=== PATIENT | male | born 1950 | race Caucasian/White ===

== ENCOUNTER → 2021-05-24 | Outpatient (CLI) | payer MEDICARE ==
--- NOTE | 2021-05-24 09:16 | XR ---
EXAMINATION TYPE: XR chest 2V DATE OF EXAM: 05/24/2021 COMPARISON: NONE TECHNIQUE: PA and lateral views submitted. HISTORY: Cough FINDINGS: The lungs are clear and there is no pneumothorax, pleural effusion, or focal pneumonia. Hypertrophi c changes of the spine. Heart size normal. No overt failure or pneumothorax. No pleural effusion. IMPRESSION: 1. No acute process.
== END | disposition home or self-care (01) ==
LOC: RADXRMAIN 08:56
PROVIDERS: ATTEND Internal Medicine
DX: J20.9 Acute bronchitis, unspecified (principal)
CPT/HCPCS: 71046

== ENCOUNTER 2024-03-25 07:36 | Inpatient (IN) | payer MEDICARE ==
[2024-03-25 07:52] LABS: Glucose,Whole Blood 105 mg/dL (70-110)
--- NOTE | 2024-03-25 08:01 | ED ---
Altered Mental Status HPI - General Chief Complaint: Altered Mental Status Stated Complaint: AMS Time Seen by Provider: 03/25/24 07:42 Source: EMS, RN notes reviewed, old records reviewed, Caregiver Mode of arrival: EMS Limitations: altered mental status - History of Present Illness Initial Comments: This is a 74-year-old male with decreased responsiveness found wandering around his house not acting appropriately confused with recent hospital admission for pneumonia coronavirus on antibiotics. Patient was acting weak last night but more normal woke up this morning with increasing weakness and significantly increased confusion brought to ER by EMS patient unable to give history MD Complaint: altered mental status, confusion, decreased responsiveness, weakness -: days(s) Severity: moderate Consistency of Symptoms: getting worse Associated Symptoms: weakness Treatments Prior to Arrival: oxygen - Related Data Home Medications Medication Instructions Recorded Confirmed Alpha Lipoic Acid 600 mg PO HS 03/25/24 03/25/24 Apixaban [Eliquis] 5 mg PO BID 03/25/24 03/25/24 Atorvastatin [Lipitor] 20 mg PO HS 03/25/24 03/25/24 Cephalexin [Keflex] 250 mg PO TID 03/25/24 03/25/24 Cholecalciferol [Vitamin D3 (25 100 mcg PO DAILY 03/25/24 03/25/24 Mcg = 1000 Iu)] Cholestyramine/Aspartame 4 gm PO BID PRN 03/25/24 03/25/24 [Cholestyramine Light Powder] Colchicine [Colcrys] 0.6 mg PO DAILY PRN 03/25/24 03/25/24 Diphenoxylate HCl/Atropine 1 tab PO Q8H PRN 03/25/24 03/25/24 [Lomotil 2.5-0.025 mg Tablet] Empagliflozin [Jardiance] 25 mg PO DAILY 03/25/24 03/25/24 Famotidine [Pepcid] 40 mg PO HS 03/25/24 03/25/24 Furosemide [Lasix] 40 mg PO DAILY 03/25/24 03/25/24 Insulin Glargine,Hum.rec.anlog 15 units SQ DAILY 03/25/24 03/25/24 [Lantus Solostar Pen] Levothyroxine Sodium [Synthroid] 112 mcg PO DAILY 03/25/24 03/25/24 Lipase/Protease/Amylase [Zenpep Dr 1 cap PO TID-W/MEALS 03/25/24 03/25/24 25,000 Unit Capsule] Loperamide [Imodium] 2 mg PO BID PRN 03/25/24 03/25/24 Loratadine [Claritin] 10 mg PO DAILY 03/25/24 03/25/24 Metoprolol Tartrate [Lopressor] 50 mg PO BID 03/25/24 03/25/24 Ondansetron Odt [Zofran Odt] 4 mg PO Q8HR PRN 03/25/24 03/25/24 Potassium Gluconate 550mg 550 mg PO DAILY 03/25/24 03/25/24 Sertraline [Zoloft] 50 mg PO DAILY 03/25/24 03/25/24 Vancomycin Oral Solution 125 mg PO Q12H 03/25/24 03/25/24 [Vancomycin HCl Oral Soln] allopurinoL [Zyloprim] 100 mg PO DAILY 03/25/24 03/25/24 lisinopriL [Zestril] 2.5 mg PO DAILY 03/25/24 03/25/24 oxyCODONE-APAP 5-325MG [Percocet 1 tab PO Q8H PRN 03/25/24 03/25/24 5-325 mg] traZODone HCL [Desyrel] 50 mg PO HS 03/25/24 03/25/24 Allergies Allergy/AdvReac Type Severity Reaction Status Date / Time No Known Allergies Allergy Verified 03/25/24 09:32 Review of Systems ROS Statement: Those systems with pertinent positive or pertinent negative responses have been documented in the HPI. ROS Other: All systems not noted in ROS Statement are negative. Past Medical History - Past Family History Mother History Unknown: Yes General Exam Limitations: altered mental status, physical limitation General appearance: alert, lethargic, in distress Head exam: Present: atraumatic, normocephalic, normal inspection Eye exam: Present: normal appearance, PERRL, EOMI. Absent: scleral icterus, conjunctival injection, periorbital swelling ENT exam: Present: normal exam, mucous membranes moist Neck exam: Present: normal inspection. Absent: tenderness, meningismus, lymphadenopathy Respiratory exam: Present: normal lung sounds bilaterally. Absent: respiratory distress, wheezes, rales, rhonchi, stridor Cardiovascular Exam: Present: regular rate, normal rhythm, normal heart sounds. Absent: systolic murmur, diastolic murmur, rubs, gallop, clicks GI/Abdominal exam: Present: soft, normal bowel sounds. Absent: distended, tenderness, guarding, rebound, rigid Extremities exam: Present: normal inspection, full ROM, normal capillary refill. Absent: tenderness, pedal edema, joint swelling, calf tenderness Back exam: Present: normal inspection Neurological exam: Present: alert, oriented X3, CN II-XII intact Psychiatric exam: Present: normal affect, normal mood Skin exam: Present: warm, dry, intact, normal color. Absent: rash Course Vital Signs 03/25/24 03/25/24 03/25/24 07:41 10:54 13:47 Temperature 97.5 F L Pulse Rate 70 74 68 Respiratory 18 18 17 Rate Blood Pressure 146/81 127/69 138/63 O2 Sat by Pulse 97 Oximetry 03/25/24 03/25/24 03/25/24 14:38 17:45 20:00 Temperature Pulse Rate 63 74 79 Respiratory 18 13 18 Rate Blood Pressure 138/54 155/63 153/62 O2 Sat by Pulse 94 L 97 97 Oximetry 03/25/24 03/25/24 03/26/24 21:00 23:00 01:05 Temperature Pulse Rate 86 83 90 Respiratory 18 18 18 Rate Blood Pressure 136/60 133/62 142/63 O2 Sat by Pulse 97 97 95 Oximetry 03/26/24 03/26/24 03/26/24 05:12 07:22 10:36 Temperature 99.1 F 100.2 F H Pulse Rate 83 85 72 Respiratory 18 18 18 Rate Blood Pressure 141/71 141/68 150/73 O2 Sat by Pulse 97 95 94 L Oximetry 03/26/24 03/26/24 03/26/24 12:10 13:40 16:54 Temperature 98 F 97.5 F L Pulse Rate 64 70 Respiratory 18 16 Rate Blood Pressure 122/63 128/69 O2 Sat by Pulse 95 99 Oximetry 03/26/24 18:00 Temperature Pulse Rate 71 Respiratory 16 Rate Blood Pressure 135/63 O2 Sat by Pulse 99 Oximetry - Reevaluation(s) Reevaluation #1: 03/25/24 08:00 Medical records reviewed Reevaluation #2: 03/25/24 10:29 No improvement in symptoms here in the ER Reevaluation #3: 03/25/24 10:30 Family informed of results questions answered Reevaluation #4: Was pt. sent in by a medical professional or institution (ELEAZAR Garcia, MACHINE EGG WASHER, urgent care, hospital, or retirement...) When possible be specific @ -no Did you speak to anyone other than the patient for history (EMS, parent, family, police, friend...)? What history was obtained from this source @ -no Did you review nursing and triage notes (agree or disagree)? Why? @ -agree Are old charts reviewed (outside hosp., previous admission, EMS record, old EKG, old radiological studies, urgent care reports/EKG's, retirement records)? Report findings @ -yes Differential Diagnosis (chest pain, altered mental status, abdominal pain women, abdominal pain men, vaginal bleeding, weakness, fever, dyspnea, syncope, headache, dizziness, GI bleed, back pain, seizure, CVA, palpatations, mental health, musculoskeletal)? @ -prior EKG interpreted by me (3pts min.). @ -yes X-rays interpreted by me (1pt min.). @ -yes negative for acute disease CT interpreted by me (1pt min.). @ -Yes negative for acute disease U/S interpreted by me (1pt. min.). @ -no What testing was considered but not performed or refused? (CT, X-rays, U/S, labs)? Why? @ -none What meds were considered but not given or refused? Why? @ -none Did you discuss the management of the patient with other professionals (professionals i.e. ELEAZAR Garcia, MACHINE EGG WASHER, lab, RT, psych nurse, social and human services assistant, drafter (cad) electrical, teacher, highway patrol officer, disease case manager rn)? Give summary @ -no Was smoking cessation discussed for >3mins.? @ -no Was critical care preformed (if so, how long)? @ -yes31 Were there social determinants of health that impacted care today? How? (Homelessness, low income, unemployed, alcoholism, drug addiction, transportation, low edu. Level, literacy, decrease access to med. care, care home, rehab)? @ -none Was there de-escalation of care discussed even if they declined (Discuss DNR or withdrawal of care, Hospice)? DNR status @ -no What co-morbidities impacted this encounter? (DM, HTN, Smoking, COPD, CAD, Cancer, CVA, ARF, Chemo, Hep., AIDS, mental health diagnosis, sleep apnea, morb id obesity)? @ -none Was patient admitted / discharged? Hospital course, mention meds given and rou te, prescriptions, significant lab abnormalities, going to OR and other pertinent info. @ - 74 male for altered mental status severe elevated troponin here in the ER unresponsive to questioning here in the emergency department old CVA on CT patient will be admitted for further evaluation management Admitted Undiagnosed new problem with uncertain prognosis? @ -no Drug Therapy requiring intensive monitoring for toxicity (Heparin, Nitro, Insulin, Cardizem)? @ -no Were any procedures done? @ -no Diagnosis/symptom? @ -Altered mental status CVA Acute, or Chronic, or Acute on Chronic? @ -Acute Uncomplicated (without systemic symptoms) or Complicated (systemic symptoms)? @ -Complicated Side effects of treatment? @ -no Exacerbation, Progression, or Severe Exacerbation? @ -exacerbation Poses a threat to life or bodily function? How? (Chest pain, USA, OR, pneumonia, PE, COPD, DKA, ARF, appy, cholecystitis, CVA, Diverticulitis, Homicidal, Suicidal, threat to staff... and all critical care pts) @ -yes extremes of age Reevaluation #5: Differential Altered Mental Status: Hypoglycemia, DKA, hypercapnia, ETOH, overdose, CO poisoning, trauma, myxedema coma, HTN encephalopathy, infection, encephalitis, psychosis, intercranial hemorrhage, hepatic encephalopathy, meningitis, CVA, this is not meant to be an all-inclusive list - Consultations Consultation #1: Spoke with To her who agrees to admit this patient Medical Decision Making - Medical Decision Making 74 male for altered mental status severe elevated troponin here in the ER unresponsive to questioning here in the emergency department old CVA on CT patient will be admitted for further evaluation management - Lab Data Result diagrams: 03/27/24 04:11 03/27/24 04:11 Lab Results 03/25/24 03/25/24 03/25/24 Range/Units 07:51 08:04 08:04 WBC 15.4 H (3.8-10.6) k/uL RBC 4.30 (4.30-5.90) m/uL Hgb 11.5 L (13.0-17.5) gm/dL Hct 35.5 L (39.0-53.0) % MCV 82.7 (80.0-100.0) fL MCH 26.7 (25.0-35.0) pg MCHC 32.2 (31.0-37.0) g/dL RDW 17.9 H (11.5-15.5) % Plt Count 181 (150-450) k/uL MPV 7.9 Neutrophils % 77 % Lymphocytes % 11 % Monocytes % 9 % Eosinophils % 0 % Basophils % 0 % Neutrophils # 11.9 H (1.3-7.7) k/uL Lymphocytes # 1.7 (1.0-4.8) k/uL Monocytes # 1.3 H (0-1.0) k/uL Eosinophils # 0.0 (0-0.7) k/uL Basophils # 0.0 (0-0.2) k/uL Anisocytosis Slight PT 17.6 H (10.0-12.5) sec INR 1.7 H (<1.2) APTT 26.4 (22.0-30.0) sec Sodium (137-145) mmol/L Potassium (3.5-5.1) mmol/L Chloride (98-107) mmol/L Carbon Dioxide (22-30) mmol/L Anion Gap mmol/L BUN (9-20) mg/dL Creatinine (0.66-1.25) mg/dL Est GFR (CKD-EPI)AfAm (>60 ml/min/1.73 sqM) Est GFR (CKD-EPI)NonAf (>60 ml/min/1.73 sqM) Glucose (74-99) mg/dL POC Glucose (mg/dL) 105 (70-110) mg/dL POC Glu Side Door Man ID Gresell Tameka Calcium (8.4-10.2) mg/dL Phosphorus (2.5-4.5) mg/dL Magnesium (1.6-2.3) mg/dL Total Bilirubin (0.2-1.3) mg/dL AST (17-59) U/L ALT (4-49) U/L Alkaline Phosphatase (38-126) U/L Ammonia (<30) umol/L Creatine Kinase (55-170) U/L Troponin I (0.000-0.034) ng/mL Total Protein (6.3-8.2) g/dL Albumin (3.5-5.0) g/dL Lipase (23-300) U/L Serum Alcohol mg/dL 03/25/24 03/25/24 03/25/24 Range/Units 08:04 08:04 08:04 WBC (3.8-10.6) k/uL RBC (4.30-5.90) m/uL Hgb (13.0-17.5) gm/dL Hct (39.0-53.0) % MCV (80.0-100.0) fL MCH (25.0-35.0) pg MCHC (31.0-37.0) g/dL RDW (11.5-15.5) % Plt Count (150-450) k/uL MPV Neutrophils % % Lymphocytes % % Monocytes % % Eosinophils % % Basophils % % Neutrophils # (1.3-7.7) k/uL Lymphocytes # (1.0-4.8) k/uL Monocytes # (0-1.0) k/uL Eosinophils # (0-0.7) k/uL Basophils # (0-0.2) k/uL Anisocytosis PT (10.0-12.5) sec INR (<1.2) APTT (22.0-30.0) sec Sodium 133 L (137-145) mmol/L Potassium 3.9 (3.5-5.1) mmol/L Chloride 103 (98-107) mmol/L Carbon Dioxide 21 L (22-30) mmol/L Anion Gap 9 mmol/L BUN 20 (9-20) mg/dL Creatinine 0.74 (0.66-1.25) mg/dL Est GFR (CKD-EPI)AfAm >90 (>60 ml/min/1.73 sqM) Est GFR (CKD-EPI)NonAf >90 (>60 ml/min/1.73 sqM) Glucose 117 H (74-99) mg/dL POC Glucose (mg/dL) (70-110) mg/dL POC Glu Side Door Man ID Calcium 7.9 L (8.4-10.2) mg/dL Phosphorus 3.9 (2.5-4.5) mg/dL Magnesium 2.2 (1.6-2.3) mg/dL Total Bilirubin 1.5 H (0.2-1.3) mg/dL AST 78 H (17-59) U/L ALT 25 (4-49) U/L Alkaline Phosphatase 293 H (38-126) U/L Ammonia 13 (<30) umol/L Creatine Kinase (55-170) U/L Troponin I 3.690 H* (0.000-0.034) ng/mL Total Protein 6.4 (6.3-8.2) g/dL Albumin 2.4 L (3.5-5.0) g/dL Lipase 11 L (23-300) U/L Serum Alcohol <10 mg/dL 03/25/24 Range/Units 08:04 WBC (3.8-10.6) k/uL RBC (4.30-5.90) m/uL Hgb (13.0-17.5) gm/dL Hct (39.0-53.0) % MCV (80.0-100.0) fL MCH (25.0-35.0) pg MCHC (31.0-37.0) g/dL RDW (11.5-15.5) % Plt Count (150-450) k/uL MPV Neutrophils % % Lymphocytes % % Monocytes % % Eosinophils % % Basophils % % Neutrophils # (1.3-7.7) k/uL Lymphocytes # (1.0-4.8) k/uL Monocytes # (0-1.0) k/uL Eosinophils # (0-0.7) k/uL Basophils # (0-0.2) k/uL Anisocytosis PT (10.0-12.5) sec INR (<1.2) APTT (22.0-30.0) sec Sodium (137-145) mmol/L Potassium (3.5-5.1) mmol/L Chloride (98-107) mmol/L Carbon Dioxide (22-30) mmol/L Anion Gap mmol/L BUN (9-20) mg/dL Creatinine (0.66-1.25) mg/dL Est GFR (CKD-EPI)AfAm (>60 ml/min/1.73 sqM) Est GFR (CKD-EPI)NonAf (>60 ml/min/1.73 sqM) Glucose (74-99) mg/dL POC Glucose (mg/dL) (70-110) mg/dL POC Glu Side Door Man ID Calcium (8.4-10.2) mg/dL Phosphorus (2.5-4.5) mg/dL Magnesium (1.6-2.3) mg/dL Total Bilirubin (0.2-1.3) mg/dL AST (17-59) U/L ALT (4-49) U/L Alkaline Phosphatase (38-126) U/L Ammonia (<30) umol/L Creatine Kinase 66 (55-170) U/L Troponin I (0.000-0.034) ng/mL Total Protein (6.3-8.2) g/dL Albumin (3.5-5.0) g/dL Lipase (23-300) U/L Serum Alcohol mg/dL - EKG Data -: EKG Interpreted by Me (EKG is sinus 69 IA 128 QRS 89 QTc 413) - Radiology Data Radiology results: report reviewed (CT brain negative for acute disease chest x- ray is negative for acute disease), image reviewed Critical Care Time Critical Care Time: Yes Total Critical Care Time: 31 Disposition Clinical Impression: Altered mental status, NSTEMI (non-ST elevated myocardial infarction) Disposition: ADMITTED IP TO THIS HOSP Condition: Serious Is patient prescribed a controlled substance at d/c from ED?: No Time of Disposition: 10:00
[2024-03-25 08:22] LABS: Anisocytosis Slight; Basophils % (A) 0 %; Eosinophils % (A) 0 %; HCT 35.5 % (39.0-53.0); HGB 11.5 gm/dL (13.0-17.5); Lymphocytes # (A) 1.7 k/uL (1.0-4.8); Lymphocytes % (A) 11 %; MCH 26.7 pg (25.0-35.0); MCHC 32.2 g/dL (31.0-37.0); MCV 82.7 fL (80.0-100.0); Mean Platelet Volume 7.9; Monocytes # (A) 1.3 k/uL (0-1.0); Monocytes % (A) 9 %; Neutrophils # (A) 11.9 k/uL (1.3-7.7); Neutrophils % (A) 77 %; Platelet Count 181 k/uL (150-450); RDW 17.9 % (11.5-15.5); WBC 15.4 k/uL (3.8-10.6)
[2024-03-25] MEDS: SODIUM CHLORIDE 0.9% 1,000 ML IV ONE (08:27)
[2024-03-25 08:30] LABS: ALT 25 U/L (4-49); AST 78 U/L (17-59); African American GFR (CKD) >90 (>60 ml/min/1.73 sqM); Albumin 2.4 g/dL (3.5-5.0); Alcohol <10 mg/dL; Alkaline Phosphatase 293 U/L (38-126); Anion Gap 9 mmol/L; Blood Urea Nitrogen 20 mg/dL (9-20); Calcium 7.9 mg/dL (8.4-10.2); Carbon Dioxide 21 mmol/L (22-30); Chloride 103 mmol/L (98-107); Glucose 117 mg/dL (74-99); Lipase 11 U/L (23-300); Magnesium 2.2 mg/dL (1.6-2.3); Non-African American GFR(CKD) >90 (>60 ml/min/1.73 sqM); Phosphorus 3.9 mg/dL (2.5-4.5); Potassium 3.9 mmol/L (3.5-5.1); Sodium 133 mmol/L (137-145); Total Bilirubin 1.5 mg/dL (0.2-1.3); Total Protein 6.4 g/dL (6.3-8.2)
--- NOTE | 2024-03-25 08:30 | CT ---
EXAMINATION TYPE: CT brain wo con DATE OF EXAM: 03/25/2024 8:21 AM COMPARISON: . None CLINICAL INDICATION: Male, 74 years old with history of Altered mental status, AMS, recent TIA, hx pa ncreatic ca TECHNIQUE: Brain: Axial CT images of the brain were obtained with coronal and sagittal reformats created and rev iewed. Contrast used: None. Oral contrast used: None. CT DLP: 1271.4 mGycm, Automated exposure control for dose reduction was used. FINDINGS: Brain: Extra-axial spaces: No abnormal extra-axial fluid collections. Ventricular system: Dilatation in proportion to cerebral atrophy. Cerebral parenchyma: Encephalomalacia with low density left inferior temporal lobe medially/occipital lobe. No acute intraparenchymal hemorrhage or mass effect. The rabago-white junction is well differen tiated. Cerebellum: Unremarkable. Mass effect: No evidence of midline shift. Intracranial vasculature: Atherosclerotic calcifications of the intracranial vessels. Soft tissues: Normal. Calvarium/osseous structures: No depressed skull fracture. Paranasal sinuses and mastoid air cells: Mild scattered paranasal sinus disease. Dashawn cells bilater ally. [place] Cells. 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 Recently performed. No acute intracranial process. [facility], , 03/25/2024 8:28 AM
[2024-03-25 08:31] LABS: INR 1.7 (<1.2); Partial Thromboplastin Time 26.4 sec (22.0-30.0); Prothrombin Time 17.6 sec (10.0-12.5)
--- NOTE | 2024-03-25 08:38 | XR ---
EXAMINATION TYPE: XR chest 1V DATE OF EXAM: 03/25/2024 8:25 AM COMPARISON: 05/24/2022. CLINICAL INDICATION: Male, 74 years old with history of altered mental status; TECHNIQUE: XR chest 1V Frontal view of the chest. FINDINGS: Lungs/Pleura: There is no evidence of pleural effusion, focal consolidation, or pneumothorax. Pulmonary vascularity: Unremarkable. Heart/mediastinum: Cardiomediastinal silhouette is unremarkable. Musculoskeletal: No acute osseous pathology. IMPRESSION: No acute cardiopulmonary disease/process. [facility], , 03/25/2024 8:35 AM
[2024-03-25] MEDS ORDERED: NITROGLYCERIN SL TABS 0.4 MG TAB SUBLINGUAL PRN (10:26)
[2024-03-25] MEDS ORDERED: ONDANSETRON 4 MG/2 ML VIAL IVP PRN (10:26)
[2024-03-25] MEDS ORDERED: NALOXONE 0.4 MG/ML 1 ML VIAL IV PRN (10:26)
[2024-03-25] MEDS: ASPIRIN 81 MG PO STA (10:53)
[2024-03-25] MEDS: ASPIRIN 325 MG TAB PO SCH (12:01)
[2024-03-25] MEDS: ATORVASTATIN 80 MG TAB PO SCH (12:02)
[2024-03-25 14:43] LABS: Appearance,Urine Cloudy (Clear); Bilirubin,Urine Negative (Negative); Blood,Urine Negative (Negative); Budding Yeast,Urine Occasional /hpf; Color,Urine Yellow; Glucose,Urine (UA) 4+ (Negative); Ketones,Urine Trace (Negative); Leukocyte Esterase,Urine Negative (Negative); Mucus,Urine Rare /hpf; Nitrite,Urine Negative (Negative); Protein,Urine Negative (Negative); RBC,Urine 1 /hpf (0-5); Specific Gravity,Urine 1.032 (1.001-1.035); Squamous Epithelial Cell,Urine <1 /hpf (0-4); Urobilinogen,Urine <2.0 mg/dL (<2.0); WBC,Urine 2 /hpf (0-5)
[2024-03-25 14:52] LABS: Amphetamine Screen,Urine Not Detected (NotDetected); Barbiturate Screen,Urine Not Detected (NotDetected); Benzodiazepines Screen,Urine Not Detected (NotDetected); Cocaine Screen,Urine Not Detected (NotDetected); Methadone Screen, Urine Not Detected (NotDetected); Opiate Screen,Urine Not Detected (NotDetected); Oxycodone Screen, Urine Detected (NotDetected); Phencyclidine Screen,Urine Not Detected (NotDetected); Tricyclic Antidepressant,Urine Not Detected (NotDetected); Urn Cannabinoid Scrn Not Detected (NotDetected)
--- NOTE | 2024-03-25 14:58 | P.CN ---
Psychiatric Consult - . Consult date: 03/25/24 Consult:: 03/25/24 14:49 IDENTIFYING DATA: This patient is a 74-year-old male, living with REASON FOR REFERRAL: Psychiatry was consulted for AMS HISTORY OF PRESENT ILLNESS: The patient presented to the hospital with AMS after reportedly being found wandering around his house, confused. White count was elevated at 15.5, PT/INR elevated, troponins increased x 2. CT head was negative for any acute changes and chest x-ray was also negative for any acute changes. Patient was unable to communicate thus history was provided from patient's who was seen at bedside. She states patient was recently admitted at [facility] with infection and increased weakness. She states he has a history of pancreatic cancer diagnosed April of last year with history of stroke. She states patient at baseline is able to communicate and he previously was in cancer support groups at the [facility]. She denied any past psych history and states patient has been down due to his diagnosis of cancer however he has not reported any SI/HI or AVH. PAST PSYCHIATRIC HISTORY: Patient has no past psych history. Patient denies being on any psychiatric medications. Patient denies any previous psychiatric hospitalizations. Patient denies any psychiatric outpatient follow-up. Patient denies any history of suicide attempts in the past. PAST MEDICAL HISTORY: Pancreatic cancer, CVA. ALLERGIES: as per EMR. CHEMICAL DEPENDENCY HISTORY: as per HPI. FAMILY PSYCHIATRIC/SUBSTANCE USE HISTORY: Denies SOCIAL HISTORY: Patient is and has children. He lives with . He is retired MENTAL STATUS EXAM: General Appearance: Patient appears to be stated age is alert, however unable to communicate. Patient appears to have fair hygiene and grooming wearing hospital gown with fair eye contact. Behavior: Patient is calmly lying in bed without any agitated behavior. Speech: Unable to assess Suicidality/Homicidality: Unable to assess Perceptions: Patient did not appear internally preoccupied Judgment and insight: Limited IMPRESSIONS: Unspecified neurocognitive disorder PLAN: -At this time patient DOES NOT meet criteria for inpatient psychiatric admission. -Delirium precautions recommended with patient including - avoiding use of n arcotics and ELECTRICAL CONTROL ASSEMBLER sedatives, limit anticholinergic medications when possible, frequent re-orientation, minimize use of restraints, open window shades during the day and close them at night -Would recommend the following medication changes/additions: Start low-dose Haldol IV/p.o. for agitation or acute safety concerns -Psychiatry will sign off at this time -Please contact with any questions.
[2024-03-25] MEDS ORDERED: oxyCODONE-APAP 5-325MG 1 EACH TAB PO PRN (16:49)
[2024-03-25] MEDS ORDERED: DIPHENOX-ATROP 2.5-0.025 MG 1 EACH TAB PO PRN (16:49)
[2024-03-25] MEDS ORDERED: CHOLESTYRAMINE (WITH SUGAR) 4 GM PACKET PO PRN (16:49)
[2024-03-25] MEDS ORDERED: COLCHICINE 0.6 MG EACH PO PRN (16:49)
[2024-03-25] MEDS ORDERED: LOPERAMIDE 2 MG CAP PO PRN (16:49)
[2024-03-25] MEDS ORDERED: ONDANSETRON ODT 4 MG TAB PO PRN (16:49)
[2024-03-25] MEDS: LIPASE 5,000/PROTEASE 17,000/AMYLASE 24,000 PO SCH (17:43)
--- NOTE | 2024-03-25 20:09 | US ---
EXAMINATION TYPE: US carotid duplex BILAT DATE OF EXAM: 03/25/2024 COMPARISON: NONE CLINICAL INDICATION: Male, 74 years old with history of CVA; CVA. Patient AMS. Unable to follow direc tions Additional History: .... TECHNIQUE: Grayscale, color Doppler and spectral Doppler evaluation of the bilateral carotid systems and vertebral arteries. Indirect Doppler criteria was utilized. FINDINGS: EXAM MEASUREMENTS: Right side limitations due to neck positioning and patient unable to turn neck. Unable to visualize right prox cca and right vertebral artery RIGHT: Peak Systolic Velocity (PSV) cm/sec ----- Right CCA: 114.5 ----- Right ICA: 91.9 ----- Right ECA: 145.6 ICA/CCA ratio: 0.8 RIGHT: End Diastole cm/sec ----- Right CCA: 14.4 ----- Right ICA: 22.5 ----- Right ECA: 9.7 LEFT: Peak Systolic Velocity (PSV) cm/sec ----- Left CCA: 125.9 ----- Left ICA: 114.0 ----- Left ECA: 211.6 ICA/CCA ratio: 0.9 LEFT: End Diastole cm/sec ----- Left CCA: 21.5 ----- Left ICA: 11.6 ----- Left ECA: 13.7 VERTEBRALS (direction of flow): Right Vertebral: Unable to visualize Left Vertebral: Antegrade Rhythm: Normal SENIOR PROJECT COORDINATOR NOTES: Plaque seen within bilateral bifurcations. Elevated velocity seen within left ECA Color Doppler imaging shows patency with blood flow throughout the carotid artery. Spectral waveforms are within normal limits. IMPRESSION: Right: Less than 50% stenosis of the carotid bifurcation. Left: Less than 50% stenosis of the carotid bifurcation. Criteria for Assigning % of Stenosis / Diameter reduction (Estimation based on the indirect measurements of the internal carotid artery velocities (ICA PSV). 1. Normal (no stenosis)=ICA PSV < 125 cm/s: ratio < 2.0: ICA EDV<40 cm/s. 2. Less than 50% stenosis=ICA PSV < 125 cm/s: ratio < 2.0: ICA EDV<40 cm/s. 3. 50 to 69% stenosis=ICA PSV of 125 to 230 cm/s: ration 2.0 ? 4.0: ICA EDV 40-100 cm/s. 4. Greater than 70% stenosis to near occlusion= ICA PSV > 230 cm/s: ratio > 4.0: ICA EDV > 100 cm/s. 5. Near occlusion= ICA PSV velocities may be low or undetectable: variable ratio and ICA EDV. 6. Total occlusion=unable to detect flow. [facility], , 03/25/2024 8:07 PM
[2024-03-25] MEDS: ATORVASTATIN 20 MG TAB PO SCH (20:54)
[2024-03-25] MEDS: APIXABAN 5 MG TAB PO SCH (20:54)
[2024-03-25] MEDS: traZODone HCL 50 MG TAB PO SCH (20:55)
[2024-03-25] MEDS: FAMOTIDINE 20 MG TAB PO SCH (20:55)
[2024-03-25] MEDS: METOPROLOL TARTRATE 50 MG TAB PO SCH (20:55)
[2024-03-25] MEDS: VANCOMYCIN ORAL SOLUTION 250 MG/5 ML BOTTLE PO SCH (20:55)
[2024-03-25] MEDS ORDERED: NON FORMULARY DRUG (Alpha Lipoic Acid [Alpha Lipoic Acid] 600 MG Tablet) PO SCH (21:00)
[2024-03-25 21:36] LABS: Glucose,Whole Blood 103 mg/dL (70-110)
[2024-03-25] MEDS: INSULIN ASPART (NovoLOG) 100 UNIT/ML VIAL SQ SCH (21:38)
[2024-03-25] MEDS: CEPHALEXIN 250 MG CAP PO SCH (22:00)
[2024-03-25] MEDS: HALOPERIDOL LACTATE 5 MG/ML 1 ML VIAL IM PRN (23:22)
[2024-03-26] MEDS: SODIUM CHLORIDE 0.9% 1,000 ML IV SCH (01:20)
[2024-03-26] MEDS: LEVOTHYROXINE 112 MCG TAB PO SCH (05:47)
[2024-03-26 06:46] LABS: Anisocytosis Slight; Basophils % (A) 0 %; Eosinophils % (A) 0 %; HCT 32.1 % (39.0-53.0); HGB 10.4 gm/dL (13.0-17.5); Hypochromasia Slight; Lymphocytes # (A) 1.2 k/uL (1.0-4.8); Lymphocytes % (A) 8 %; MCHC 32.3 g/dL (31.0-37.0); MCV 83.5 fL (80.0-100.0); Mean Platelet Volume 7.2; Monocytes # (A) 1.4 k/uL (0-1.0); Monocytes % (A) 10 %; Neutrophils # (A) 11.9 k/uL (1.3-7.7); Neutrophils % (A) 80 %; Platelet Count 161 k/uL (150-450); RBC 3.84 m/uL (4.30-5.90); RDW 17.8 % (11.5-15.5); WBC 14.9 k/uL (3.8-10.6)
[2024-03-26 06:58] LABS: ALT 24 U/L (4-49); AST 67 U/L (17-59); African American GFR (CKD) >90 (>60 ml/min/1.73 sqM); Albumin 2.2 g/dL (3.5-5.0); Alkaline Phosphatase 261 U/L (38-126); Anion Gap 7 mmol/L; Blood Urea Nitrogen 19 mg/dL (9-20); Calcium 7.7 mg/dL (8.4-10.2); Carbon Dioxide 22 mmol/L (22-30); Chloride 105 mmol/L (98-107); Glucose 97 mg/dL (74-99); Magnesium 2.2 mg/dL (1.6-2.3); Non-African American GFR(CKD) >90 (>60 ml/min/1.73 sqM); Phosphorus 3.2 mg/dL (2.5-4.5); Potassium 3.8 mmol/L (3.5-5.1); Sodium 134 mmol/L (137-145); Total Bilirubin 1.5 mg/dL (0.2-1.3); Total Protein 6.1 g/dL (6.3-8.2)
[2024-03-26 07:22] LABS: Glucose,Whole Blood 85 mg/dL (70-110)
[2024-03-26] MEDS: INSULIN DETEMIR (LEVEMIR) 100 UNIT/ML SYR SQ SCH (07:26)
[2024-03-26] MEDS: CHOLECALCIFEROL 25 MCG (1000 IU) TABLET PO SCH (08:01)
[2024-03-26] MEDS: allopurinoL 100 MG TAB PO SCH (08:01)
[2024-03-26] MEDS: FUROSEMIDE 40 MG TAB PO SCH (08:02)
[2024-03-26] MEDS: DAPAGLIFLOZIN PROPANEDIOL 10 MG TABLET PO SCH (08:02)
[2024-03-26] MEDS: LORATADINE 10 MG TAB PO SCH (08:02)
[2024-03-26] MEDS: SERTRALINE 50 MG TAB PO SCH (08:02)
[2024-03-26] MEDS ORDERED: POTASSIUM GLUCONATE 550 MG PO SCH (09:00)
[2024-03-26] MEDS: DEXTROSE 5%-0.45% NACL 1,000 ML IV SCH (10:00)
[2024-03-26] MEDS: MORPHINE SULFATE 4 MG/ML SYRINGE IV PRN (10:02)
[2024-03-26] MEDS: ACETAMINOPHEN IV (For NPO) 1,000 MG in EMPTY BAG 1 BAG IVPB PRN (10:36)
[2024-03-26 10:38] LABS: Chol/HDL Ratio 5.56 Ratio; LDL Cholesterol,Calculated 57.3 mg/dL (0.0-131.0); VLDL Calculation 16.46 mg/dL (5.00-40.00)
[2024-03-26 11:58] LABS: Glucose,Whole Blood 107 mg/dL (70-110)
--- NOTE | 2024-03-26 12:25 | US ---
EXAMINATION TYPE: US abdomen limited DATE OF EXAM: 03/26/2024 COMPARISON: NONE CLINICAL INDICATION: Male, 74 years old with history of ascites; ascites TECHNIQUE: Grayscale imaging for ascites. FINDINGS: Fluid visualize in RLQ. Small anechoic fluid in the right lower quadrant IMPRESSION: Small anechoic fluid in the right lower quadrant [facility], , 03/26/2024 12:22 PM
--- NOTE | 2024-03-26 12:28 | CONS ---
CONSULTATION CHIEF COMPLAINT: Elevated troponin. HISTORY OF PRESENT ILLNESS: This is a 74-year-old gentleman with stage IV metastatic pancreatic cancer, who was brought to the hospital having been found confused at home. They performed a troponin level on him that came back elevated at 3.6, but has remained flat at 3.5 and 3.4. EKG showed sinus rhythm with nonspecific ST-T wave changes. The patient has been diagnosed with pancreatic cancer and has received chemotherapy at [facility] and has the biliary stent. He was admitted there recently with confusion thought to be due to a combination of problems including septicemia. tells me that his confusion has improved, but has gotten worse due to which she brought him to hospital. His speech has become impaired of late. Since yesterday, he has not been talking. Given the advanced pancreatic cancer and the neurological symptoms, he is not a candidate for any invasive procedures and there is no reason to start him on IV heparin. The patient is on Eliquis because of the history of DVT. Resume it after Neurology evaluation and if there are no contraindications to giving him the same. PAST MEDICAL HISTORY: Significant for: 1. DVT. 2. Pancreatic cancer that is metastatic. 3. Hypothyroidism. 4. Diabetes. MEDICATIONS: At home included: 1. Insulin. 2. Lasix. 3. Jardiance. 4. Claritin. 5. Zestril. 6. Pepcid. 7. Imodium. 8. Percocet. 9. Lopressor. ALLERGIES: No known drug allergies. FAMILY HISTORY: I am unable to obtain from the patient, who is confused. SOCIAL HISTORY: I am unable to obtain from the patient, who is confused. REVIEW OF SYSTEMS: I am unable to obtain from the patient, who is confused. PHYSICAL EXAMINATION: GENERAL: The patient is confused, noncommunicative. VITAL SIGNS: Afebrile, heart rate is 85 beats per minute, blood pressure is 140/68, respiratory rate is 18. CHEST: Exam reveals good air entry bilaterally. HEART: Exam reveals first and second heart sounds. Systolic murmur at the apex. ABDOMEN: Soft. EXTREMITIES: Did not reveal any edema. Peripheral pulses are felt. ASSESSMENT AND PLAN: 1. Elevated troponin could be due to underlying metastatic cancer and [id number] elevation cannot be ruled out. 2. History of deep vein thrombosis. 3. History of metastatic pancreatic cancer. PLAN: The patient had an echocardiogram. I will review the results once they are available. No further cardiac evaluation at this time. MMODL / IJN: [id number] /
--- NOTE | 2024-03-26 13:25 | CA ---
Transthoracic Echo Report Name: Rocael Duarte Age: 74 Gender: M : 1950 Exam Date: 03/25/2024 11:26 Exam Location: [place] [facility] Ht (in): 73 Wt (lb): 224 Ordering Physician: Rick Pratt DO Attending/Referring Phys: [id number], Terence Home Extension Agent Beth Galvez RDCS Procedure CPT: Indications: nstemi Cardiac Hx: Technical Quality: Technically difficult study Contrast 1: Total Dose (mL): Contrast 2: Total Dose (mL): MEASUREMENTS (Male / Female) Normal Values 2D ECHO LA Volume 63.8 cm??? 18 - 58 / 22 - 52 cm??? LA Volume Index 27.6 cm???/m??? 16 - 28 cm???/m??? M-MODE LV Diastolic Diameter MM 4.5 cm 4.2 - 5.9 / 3.9 - 5.3 cm LV Systolic Diameter MM 2.6 cm LV Cardiac Index MM Teich 2303.9 cm???/min???m??? IVS Diastolic Thickness MM 0.9 cm 0.6 - 1.0 / 0.6 - 0.9 cm LVPW Diastolic Thickness MM 0.9 cm 0.6 - 1.0 / 0.6 - 0.9 cm LV Relative Wall Thickness MM 0.4 0.24 - 0.42 / 0.22 - 0.42 LV Mass Index MM 59.8 g/m??? 49 - 115 / 43 - 95 g/m??? Aortic Root Diameter MM 3.9 cm AV Cusp Separation MM 2.4 cm DOPPLER AV Peak Velocity 106.5 cm/s AV Peak Gradient 4.5 mmHg MV Area PHT 3.2 cm??? Mitral E Point Velocity 63.6 cm/s Mitral A Point Velocity 94.6 cm/s Mitral E to A Ratio 0.7 MV Deceleration Time 240.4 ms TR Peak Velocity 249.3 cm/s TR Peak Gradient 24.9 mmHg Right Ventricular Systolic Press 29.2 mmHg FINDINGS Left Ventricle Left ventricular ejection fraction is estimated at 50-55 %. Left ventricular cavity size normal. Left ventricular wall thickness normal. Inferoseptal and apical hypokinesis Right Ventricle Right ventricle not well visualized. Right ventricular systolic pressure within normal limits. Right Atrium Right atrium not well visualized. Left Atrium Mildly increased left atrial volume. Mildly increased left atrial area. Mitral Valve Structurally normal mitral valve. No mitral stenosis, regurgitation or prolapse. Aortic Valve Trileaflet aortic valve. No aortic valve stenosis or regurgitation. Tricuspid Valve Structurally normal tricuspid valve. Mild tricuspid regurgitation. Pulmonic Valve Structurally normal pulmonic valve. No pulmonic regurgitation. Pericardium No pericardial effusion. Aorta Mild aortic dilatation at the level of the sinuses of valsalva 39 mm CONCLUSIONS Left ventricular ejection fraction 50-55% Inferior septal and apical hypokinesis RVSP 29 No pericardial effusion Previewed by: Dr. Brennon Hector DO (Electronically Signed) Final Date: 25 March 2024 14:14
--- NOTE | 2024-03-26 13:36 | P.HPIM ---
History of Present Illness H&P Date: 03/25/24 Chief Complaint: Metabolic encephalopathy/non-ST elevation TN HISTORY OF PRESENT ILLNESS: This is a 74-year-old male with a previous medical history significant for hypertension and hypertensive cardiovascular disease, mixed hyperlipidemia, diabetes mellitus type 2, history of hypothyroidism, anxiety disorder, history of obesity, patient was diagnosed with a stage IV pancreatic cancer back in April 2023 at that time he was evaluated at [facility] and he has been following with hematology oncology down there, he did receive initially Abraxane as well as Gemzar subsequently was placed on FOLFIRI as well as mary's igloo chemotherapy, as a palliative treatment without intent for cure, patient has been having significant side effect of the medication and the treatment, has been having diarrhea on and off, he has been losing a lot of weight, patient was recently hospitalized at [facility] in [place] for what appears to be an acute sepsis and he was found to have an acute CVA at that time with the right upper extremity and right lower extremity weakness, at that time he was seen in consultation by neurology as well as by cardiology it was thought that the patient could not have any further intervention due to his cancer situation, patient also was treated for what appears to be a sepsis at that time a his Mediport was removed, and he was started on IV antibiotic at that time, subsequently was switched to oral cephalexin as well as vancomycin as a prophylactic treatment for C. difficile colitis, patient just left the hosp ital not too long ago yesterday patient became quite confused and combative, he was not able to see anything at that time, he was not able to say 1 way or the other, he was withdrawn combative not able to do anything at that time, so EMS was called and the patient was brought into the emergency department at [facility] patient's was seen and evaluated in the ER, had a CT scan of brain that showed evidence of an old CVA in the left inferior temporal occipital lobe, patient appears to be aphasic and not responding to any stimuli, he is withdrawn, he has significant right upper and right lower extremity weakness, I had a long conversation with the emergency room physician about transferring the patient back to [facility] for evaluation since he was just left the hospital less than 7 days ago, but the family insisted in keeping the patient up in our hospital, patient was found to have a troponin of 3.7, he was ruled in for non-ST elevation TN, he was seen in consultation by cardiology as well as by neurology, I have ordered MRI of the brain with and without toña, ultrasound the carotid as well as echocardiogram at this time, patient is not able to say 1 where the other what he wants to do at this point in time, his and his son were at the bedside, I had a long conversation with the patient family and they were in agreement for the patient to be a no code at this point in time, his stated that she had a conversation with the nurse at [facility] palliative care and she was supposed to have a meeting with her next Saturday I believe the patient is ready for palliative care at this point in time, we will continue with current treatment plan for now, will see our consultants opinion about his current situation, but definitely patient is not a candidate for any further treatment at this point in time, continue Escalante catheter for now, continue to follow-up with the patient very closely, I think the patient and the family are leaning toward [facility] with palliative care at this point in time. REVIEW OF SYSTEMS: Constitutional: positive for documented fever, no chills, no night sweats. positive for weight change. positive for weakness, positive for fatigue or lethargy. positive for daytime sleepiness. EENT: No headache. No blurred vision or double vision, no loss of vision. No loss of Hearing, no ringing in the ears, no dizziness. No nasal drainage or congestion. No epistaxis. No sore throat. Lungs: No shortness of breath, no cough, no sputum production. No wheezing. Reports dyspnea with activity. Cardiovascular: No chest pain, no lower extremity edema. No palpitations. No paroxysmal nocturnal dyspnea. No orthopnea. No lightheadedness or dizziness. No syncopal episodes. Abdominal: Reports no abdominal pain. No nausea, vomiting. No diarrhea. positive for constipation. No bloody or tarry stools reports loss of appetite. Genitourinary: No dysuria, increased frequency, urgency. No urinary retention. Musculoskeletal: No myalgias. right upper and lower extremities weakness, positive for gait dysfunction, no frequent falls. positive for back pain. No neck pain. Integumentary: No wounds, no lesions. No rash or pruritus. No unusual bruising. No change in hair or nails. Neurologic: positive for aphasia. positive for facial droop. positive for change in mentation. No head injury. No headache. positive for paralysis right upper and lower extremity Psychiatric: Positive for depression and anxiety. No mood swings. Endocrine: No abnormal blood sugars. positive for weight change. PAST MEDICAL HISTORY: Hypertension and hypertensive cardiovascular disease. Mixed hyperlipidemia. Diabetes mellitus type 2. Stage IV pancreatic cancer status post multiple treatment. Obstructive jaundice status post common bile duct stent placement initially flexible 1 and now rigid 1 Recurrent ascites with multiple paracentesis. Hypothyroidism. Anxiety. Allergic rhinitis. Osteoarthritis. Obesity with obstructive sleep apnea. Coronary artery disease. PAST SURGICAL HISTORY: Left calf birthmark removed. Left knee replacement. Common bile duct stent placement and removal and the rigid stent placement. Pancreatic biopsy April 2023. Recurrent paracentesis for recurrent ascites. SOCIAL HISTORY: Patient is a lifelong non-smoker, he denies any alcohol ingestion, he denies any drug use or abuse, he lives with his family. FAMILY HISTORY: Father at age 76 from multiorgan dysfunction syndrome, mother at age of 92 from dementia, patient has 1 brother and 1 sister alive and well, and has 1 son alive and well. PHYSICAL EXAMINATION: General: 74-year-old male laying down in bed appears to be in no distress does not follow any commands. HEENT: Head is atraumatic, normocephalic, pupils were equal round reactive to light and recommendation, extraocular muscle movement were intact, sclera nonicteric, conjunctivae were pale, mucous membranes of the mouth are somewhat dry. Neck: Supple, no JVP, normal carotid upstroke bilaterally, no lymphadenopathy. Chest: Decreased breath sounds at the bases, few rhonchi, no expiratory wheezes, no chest wall tenderness, no intercostal retractions. Heart: First heart sound is normal, second heart sounds normal Abdomen: Soft, nontender, nondistended, positive bowel sounds. Extremities: There is no edema no calf tenderness DP +2 bilaterally. Neurologic examination: Patient is awake alert and oriented x 1, patient appears to have a right-sided neck lack, he does appear to have a right upper extremity right lower extremity weakness, he is gazing to the left. He is aphasic not following any command. ASSESSMENT AND PLAN: 1. Non-ST elevation TN in a patient with a history of stage IV pancreatic cancer. At this point in time, I had a long conversation with the patient's and his son at the bedside, I believe the patient will benefit from palliative care at this point in time, he is not a candidate for any invasive procedure at this point in time, he is not a candidate for short for left heart catheterization at this point, I have obtained an echocardiogram for evaluation for LV function, continue to monitor the patient very closely at this point in time patient is not able to take any medication at this time, speech therapy evaluation to see if the patient is able to take anything at this time if that is not the case patient need to be started on palliative/comfort care and hopefully move him into [facility] if that is okay psychotherapist social worker consultation will be obtained. Continue patient on atorvastatin 5 mg once every day, continue aspirin 325 g once every day. 2. Recent subacute infarct in the left inferior occipital/temporal lobe injury likely related to recent stroke. I obtain ultrasound the carotid did not show evidence of acute abnormality less than 50% stenosis, echocardiogram did show evidence of ejection fraction 55%, inferior basal hypokinesia as well, MRI of the brain with and without toña was ordered still pending the time dictation, neurology consultation still in order. Patient is not a candidate for any invasive procedure or any thrombolytic at this time. Speech therapy evaluation, physical therapy evaluation keep the patient on nothing per mouth until evaluated by speech therapy. 3. History of DVT of the left lower extremity. Will obtain venous Doppler both lower extremities patient has been on Eliquis 5 mg orally twice every day we will continue with that. 4. History of stage IV pancreatic cancer under the care of hematology oncology at [facility]. In [facility]. Family at this time decided not to go for any further treatment we will continue to monitor the patient very closely, patient meets the criteria for palliative care hopefully will try to t ransition the patient into [facility] if there is no further help is available at this time, she was given the option of talking to the palliative care nurse that she already talked to her and she wants him to be home with palliative care at this time. 5. Hypertension and hypertensive cardiovascular disease. Continue patient on metoprolol 50 mg orally twice every day, lisinopril 2.5 mg once every day monitor the patient blood pressure very closely. 6. Mixed hyperlipidemia. Continue patient on atorvastatin 20 mg orally once every day, monitor lipid panel, keep LDL 55-70. 7. Diabetes mellitus type 2. Continue sliding scale insulin for now, continue Farxiga 10 mg orally once every day. 8. Hypothyroidism. Continue Synthroid 112 mcg orally once every day monitor TSH and free T4. 9. Anxiety disorder. Continue Zoloft 50 mg once every day, continue trazodone 50 mg orally once every day as well. 10. DVT prophylaxis. Continue Eliquis 5 mg orally twice every day. 11. GI prophylaxis. Continue Protonix 40 mg orally once every day. 12. Admit to inpatient. Estimated length of stay 2 midnights. 13. Patient is DNR. 14. Appropriate for palliative/hospice care. Discussed with his and his son at the bedside. Past Medical History - Past Family History Mother History Unknown: Yes Medications and Allergies Home Medications Medication Instructions Recorded Confirmed Type Alpha Lipoic Acid 600 mg PO HS 03/25/24 03/25/24 History Apixaban [Eliquis] 5 mg PO BID 03/25/24 03/25/24 History Atorvastatin [Lipitor] 20 mg PO HS 03/25/24 03/25/24 History Cephalexin [Keflex] 250 mg PO TID 03/25/24 03/25/24 History Cholecalciferol [Vitamin D3 (25 100 mcg PO DAILY 03/25/24 03/25/24 History Mcg = 1000 Iu)] Cholestyramine/Aspartame 4 gm PO BID PRN 03/25/24 03/25/24 History [Cholestyramine Light Powder] Colchicine [Colcrys] 0.6 mg PO DAILY PRN 03/25/24 03/25/24 History Diphenoxylate HCl/Atropine 1 tab PO Q8H PRN 03/25/24 03/25/24 History [Lomotil 2.5-0.025 mg Tablet] Empagliflozin [Jardiance] 25 mg PO DAILY 03/25/24 03/25/24 History Famotidine [Pepcid] 40 mg PO HS 03/25/24 03/25/24 History Furosemide [Lasix] 40 mg PO DAILY 03/25/24 03/25/24 History Insulin Glargine,Hum.rec.anlog 15 units SQ DAILY 03/25/24 03/25/24 History [Lantus Solostar Pen] Levothyroxine Sodium [Synthroid] 112 mcg PO DAILY 03/25/24 03/25/24 History Lipase/Protease/Amylase [Zenpep Dr 1 cap PO TID-W/MEALS 03/25/24 03/25/24 History 25,000 Unit Capsule] Loperamide [Imodium] 2 mg PO BID PRN 03/25/24 03/25/24 History Loratadine [Claritin] 10 mg PO DAILY 03/25/24 03/25/24 History Metoprolol Tartrate [Lopressor] 50 mg PO BID 03/25/24 03/25/24 History Ondansetron Odt [Zofran Odt] 4 mg PO Q8HR PRN 03/25/24 03/25/24 History Potassium Gluconate 550mg 550 mg PO DAILY 03/25/24 03/25/24 History Sertraline [Zoloft] 50 mg PO DAILY 03/25/24 03/25/24 History Vancomycin Oral Solution 125 mg PO Q12H 03/25/24 03/25/24 History [Vancomycin HCl Oral Soln] allopurinoL [Zyloprim] 100 mg PO DAILY 03/25/24 03/25/24 History lisinopriL [Zestril] 2.5 mg PO DAILY 03/25/24 03/25/24 History oxyCODONE-APAP 5-325MG [Percocet 1 tab PO Q8H PRN 03/25/24 03/25/24 History 5-325 mg] traZODone HCL [Desyrel] 50 mg PO HS 03/25/24 03/25/24 History Allergies Allergy/AdvReac Type Severity Reaction Status Date / Time No Known Allergies Allergy Verified 03/25/24 09:32 Physical Exam Vitals: Vital Signs Temp Pulse Resp BP Pulse Ox 03/25/24 10:54 74 18 127/69 03/25/24 07:41 97.5 F L 70 18 146/81 97 Intake and Output 03/24/24 03/25/24 03/25/24 22:59 06:59 14:59 Other: Weight 102 kg Results CBC & Chem 7: 03/26/24 06:22 03/26/24 06:22 Labs: Abnormal Lab Results - Last 24 Hours (Table) 03/25/24 03/25/24 03/25/24 Range/Units 08:04 08:04 08:04 WBC 15.4 H (3.8-10.6) k/uL Hgb 11.5 L (13.0-17.5) gm/dL Hct 35.5 L (39.0-53.0) % RDW 17.9 H (11.5-15.5) % Neutrophils # 11.9 H (1.3-7.7) k/uL Monocytes # 1.3 H (0-1.0) k/uL PT 17.6 H (10.0-12.5) sec INR 1.7 H (<1.2) Sodium 133 L (137-145) mmol/L Carbon Dioxide 21 L (22-30) mmol/L Glucose 117 H (74-99) mg/dL Calcium 7.9 L (8.4-10.2) mg/dL Total Bilirubin 1.5 H (0.2-1.3) mg/dL AST 78 H (17-59) U/L Alkaline Phosphatase 293 H (38-126) U/L Troponin I (0.000-0.034) ng/mL Albumin 2.4 L (3.5-5.0) g/dL Lipase 11 L (23-300) U/L 03/25/24 03/25/24 Range/Units 08:04 11:23 WBC (3.8-10.6) k/uL Hgb (13.0-17.5) gm/dL Hct (39.0-53.0) % RDW (11.5-15.5) % Neutrophils # (1.3-7.7) k/uL Monocytes # (0-1.0) k/uL PT (10.0-12.5) sec INR (<1.2) Sodium (137-145) mmol/L Carbon Dioxide (22-30) mmol/L Glucose (74-99) mg/dL Calcium (8.4-10.2) mg/dL Total Bilirubin (0.2-1.3) mg/dL AST (17-59) U/L Alkaline Phosphatase (38-126) U/L Troponin I 3.690 H* 3.510 H* (0.000-0.034) ng/mL Albumin (3.5-5.0) g/dL Lipase (23-300) U/L
[2024-03-26 21:29] LABS: Glucose,Whole Blood 140 mg/dL (70-110)
--- NOTE | 2024-03-26 23:10 | P.CNNES ---
History of Present Illness Consult date: 03/26/24 Requesting physician: Rick Pratt Reason for Consult: Altered mental status History of Present Illness: Patient is a 74-year-old right-handed male with history of stage IV pancreatic cancer, came to the hospital by ambulance yesterday at 7:36 AM for possible new stroke. Patient apparently was admitted to [facility] on 03/09/2024, when he had developed acute mental confusion, couldn't open the car door,, could not find the bathroom inside the house, trouble flushing the toile t, mixing up day and night and complaining of pain behind the eye. CT head revealed left occipital lobe stroke. Patient was placed on Eliquis and was discharged on 03/19/2023. He had workup performed as mentioned below. After discharge from the hospital, patient has some problem with the peripheral vision related to the stroke, but had no other deficits. He was talking well, walking by himself. Sometimes he has to hang onto something, but was not requiring any assistive device. Yesterday morning he went to the bathroom, sat in the toilet and just melted down, and fell over. He was not able to speak, aphasic. He was very weak on the right side. Therefore family called the ambulance and he was brought to the hospital. As per EMS flowsheet, when they arrived, patient and his were in the bathroom with patient sitting on the toilet. Patient was slumped to his right against the wall with his holding a pillow between patient's head and the wall. mentioned that patient was very confused and had trouble finding the bathroom on his own. Patient did not acknowledge EMS presents at all but patient would respond to painful stimuli and pull away. mentioned that patient was recently in the hospital for possible sepsis and that while in the waiting room, patient had a TIA. Patient's Mediport was removed for suspicion of being the cause of infection. Patient's vitals at the scene was blood pressure 138/92, pulse rate 82 respiration 16 saturation 97%. Vital signs on arrival blood pressure 146/81, pulse is 70 temperature 97.5. Tmax is 100.2. Blood test shows elevated WBC 15.4 hemoglobin 11.5, platelets are normal. INR 1.7. Sodium 133 potassium 3.9, normal renal functions. AST 78, ALT 25. Troponin is elevated 3.69. CK 66. UA negative. Urine drug screen positive for oxycodone. Blood alcohol level negative. EKG showed sinus rhythm with occasional ventricular premature complexes. CT head showed subacute to chronic appearing left inferior occipital/temporal lobe injury, consider evaluation with MRI. I personally reviewed CT head, agree with the findings. Chest x-ray showed no acute cardiopulmonary disease. Abdominal ultrasound showed small anechoic fluid in the right lower quadrant. Home medications include Eliquis 5 mg twice daily, Lipitor 20 mg, allopurinol, sertraline, trazodone 50 mg, metoprolol, colchicine, Jardiance, insulin, Lasix, lisinopril, potassium, Pepcid, oxycodone. Patient denies any use of tobacco, drinks alcohol socially. None for one year. She has hypertension and diabetes. No prior history of seizures. Outside records from [facility], as reviewed in my chart on patient's 's cell phone:. * MRI of the brain performed 03/10/2024 at [facility] revealed findings in keeping with suspected/known recent left occipital infarct. No acute intracranial pathology otherwise. I personally reviewed the films on the cell phone, and the current stroke visible on the CT head is the same as seen on the previous MRI. However on my review, there are at least 3 other small areas of acute ischemia in the cortical region, that was not reported by the radiologist. * 2D echo showed LV LVEF is 55 to 60%. There is sigmoid septum with moderately increased thickness of the basal interventricular septum with no obstruction to LV outflow. The left ventricular posterior wall is mildly thickened. * Carotid Doppler revealed no significant stenosis. * Lipid panel with cholesterol 75, LDL 40, HDL 17, triglycerides 85. * Hemoglobin A1c 5.4. Review of Systems Other review of systems mentioned by the family as per HPI. ROS unobtainable: due to mental status Past Medical History - Past Family History Mother History Unknown: Yes Medications and Allergies Home Medications Medication Instructions Recorded Confirmed Type Alpha Lipoic Acid 600 mg PO HS 03/25/24 03/25/24 History Apixaban [Eliquis] 5 mg PO BID 03/25/24 03/25/24 History Atorvastatin [Lipitor] 20 mg PO HS 03/25/24 03/25/24 History Cephalexin [Keflex] 250 mg PO TID 03/25/24 03/25/24 History Cholecalciferol [Vitamin D3 (25 100 mcg PO DAILY 03/25/24 03/25/24 History Mcg = 1000 Iu)] Cholestyramine/Aspartame 4 gm PO BID PRN 03/25/24 03/25/24 History [Cholestyramine Light Powder] Colchicine [Colcrys] 0.6 mg PO DAILY PRN 03/25/24 03/25/24 History Diphenoxylate HCl/Atropine 1 tab PO Q8H PRN 03/25/24 03/25/24 History [Lomotil 2.5-0.025 mg Tablet] Empagliflozin [Jardiance] 25 mg PO DAILY 03/25/24 03/25/24 History Famotidine [Pepcid] 40 mg PO HS 03/25/24 03/25/24 History Furosemide [Lasix] 40 mg PO DAILY 03/25/24 03/25/24 History Insulin Glargine,Hum.rec.anlog 15 units SQ DAILY 03/25/24 03/25/24 History [Lantus Solostar Pen] Levothyroxine Sodium [Synthroid] 112 mcg PO DAILY 03/25/24 03/25/24 History Lipase/Protease/Amylase [Zenpep Dr 1 cap PO TID-W/MEALS 03/25/24 03/25/24 History 25,000 Unit Capsule] Loperamide [Imodium] 2 mg PO BID PRN 03/25/24 03/25/24 History Loratadine [Claritin] 10 mg PO DAILY 03/25/24 03/25/24 History Metoprolol Tartrate [Lopressor] 50 mg PO BID 03/25/24 03/25/24 History Ondansetron Odt [Zofran Odt] 4 mg PO Q8HR PRN 03/25/24 03/25/24 History Potassium Gluconate 550mg 550 mg PO DAILY 03/25/24 03/25/24 History Sertraline [Zoloft] 50 mg PO DAILY 03/25/24 03/25/24 History Vancomycin Oral Solution 125 mg PO Q12H 03/25/24 03/25/24 History [Vancomycin HCl Oral Soln] allopurinoL [Zyloprim] 100 mg PO DAILY 03/25/24 03/25/24 History lisinopriL [Zestril] 2.5 mg PO DAILY 03/25/24 03/25/24 History oxyCODONE-APAP 5-325MG [Percocet 1 tab PO Q8H PRN 03/25/24 03/25/24 History 5-325 mg] traZODone HCL [Desyrel] 50 mg PO HS 03/25/24 03/25/24 History Allergies Allergy/AdvReac Type Severity Reaction Status Date / Time No Known Allergies Allergy Verified 03/25/24 09:32 Physical Examination - Vital Signs Vital Signs: Vital Signs Temp Pulse Resp BP Pulse Ox 03/26/24 12:10 98 F 03/26/24 10:36 100.2 F H 72 18 150/73 94 L 03/26/24 07:22 99.1 F 85 18 141/68 95 03/26/24 05:12 83 18 141/71 97 03/26/24 01:05 90 18 142/63 95 03/25/24 23:00 83 18 133/62 97 03/25/24 21:00 86 18 136/60 97 03/25/24 20:00 79 18 153/62 97 03/25/24 17:45 74 13 155/63 97 03/25/24 14:38 63 18 138/54 94 L 03/25/24 13:47 68 17 138/63 Patient is an elderly male, who is obviously aphasic, appears somewhat encephalopathic. Patient is aphasic, not able to tell me his name, or name any objects presented, cannot repeat. Patient is just mute. Attention, concentration and fund of knowledge is severely limited. On cranial nerve examination, pupils are equal, round and reacting to light. Patient appears to have no vision, concerned about cortical blindness. Extraocular muscles are intact. Face grossly appears symmetric, did not cooperate for checking for smile. Lower cranial nerves cannot be tested as he would not cooperate. On muscle strength testing, patient is completely flaccid in the right arm and right leg. His strength appears normal in the left arm and left leg, also moves spontaneously without any problem. Deep tendon reflexevery diminished and plantars is upgoing on the right, and down on the left. Sensory to touch or pinprick could not be assessed as patient would not cooperate. Cerebellar functions could not be tested as patient would not cooperate. Tone is decreased on the right side and bulk of muscles normal. Gait deferred.. On general examination, there is no carotid bruit or murmur, S1-S2 audible. Chest is clear on consultation. Abdomen is soft nontender. No organomegaly, bowel sounds present. Peripheral pulses are present. No peripheral edema. Results - Laboratory Findings CBC and BMP: 03/26/24 06:22 03/26/24 06:22 Abnormal Lab Findings: Abnormal Labs 03/25/24 03/25/24 03/25/24 08:04 08:04 08:04 WBC 15.4 H RBC Hgb 11.5 L Hct 35.5 L RDW 17.9 H Neutrophils # 11.9 H Monocytes # 1.3 H PT 17.6 H INR 1.7 H Sodium 133 L Carbon Dioxide 21 L Glucose 117 H Calcium 7.9 L Total Bilirubin 1.5 H AST 78 H Alkaline Phosphatase 293 H Troponin I Total Protein Albumin 2.4 L HDL Cholesterol Lipase 11 L Urine Glucose (UA) Urine Ketones Urine Mucus Urine Yeast (Budding) Ur Oxycodone Screen 03/25/24 03/25/24 03/25/24 08:04 11:23 14:29 WBC RBC Hgb Hct RDW Neutrophils # Monocytes # PT INR Sodium Carbon Dioxide Glucose Calcium Total Bilirubin AST Alkaline Phosphatase Troponin I 3.690 H* 3.510 H* Total Protein Albumin HDL Cholesterol Lipase Urine Glucose (UA) 4+ H Urine Ketones Trace H Urine Mucus Rare H Urine Yeast (Budding) Occasional H Ur Oxycodone Screen Detected H 03/25/24 03/26/24 03/26/24 14:57 06:22 06:22 WBC 14.9 H RBC 3.84 L Hgb 10.4 L Hct 32.1 L RDW 17.8 H Neutrophils # 11.9 H Monocytes # 1.4 H PT INR Sodium 134 L Carbon Dioxide Glucose Calcium 7.7 L Total Bilirubin 1.5 H AST 67 H Alkaline Phosphatase 261 H Troponin I 3.460 H* Total Protein 6.1 L Albumin 2.2 L HDL Cholesterol Lipase Urine Glucose (UA) Urine Ketones Urine Mucus Urine Yeast (Budding) Ur Oxycodone Screen 03/26/24 06:22 WBC RBC Hgb Hct RDW Neutrophils # Monocytes # PT INR Sodium Carbon Dioxide Glucose Calcium Total Bilirubin AST Alkaline Phosphatase Troponin I Total Protein Albumin HDL Cholesterol 16.20 L Lipase Urine Glucose (UA) Urine Ketones Urine Mucus Urine Yeast (Budding) Ur Oxycodone Screen Assessment and Plan Assessment: * Probable acute ischemic stroke manifesting with global aphasia and right hemiplegia. Patient was not a candidate for TNK because of recent stroke. * Recent acute CVA 03/09/2024 involving the left occipital lobe with right sided visual field deficit. * Hypertension * Diabetes * Stage IV pancreatic cancer Plan: MRI of the brain with and without contrast, evaluate for acute CVA, rule out any metastatic disease. 2-D echo revealed LV EF 50-55%. Inferior septal and apical hypokinesis. Mildly increased left atrial volume. No significant valvular abnormalities. Carotid Doppler, revealed less than 50% stenosis of either carotid bifurcations. Right vertebral artery unable to visualize, left vertebral artery had antegrade flow. Fasting a.m. lipid panel cholesterol 90, LDL 57, HDL 16, triglycerides 82. Continue Lipitor 20 mg daily. Hemoglobin A1c Patient was on Eliquis 5 mg twice a day, and was compliant with the medication since discharge from [facility]. Uncertain as to the cause of another stroke. Perhaps related to hypercoagulable state from stage IV pancreatic cancer. Patient cannot take anything by mouth at this time. We will give aspirin 300 mg rectally daily. Permissive hypertension for next 24-48 hours Neuro checks every 2 hours. Telemetry monitoring rule out any arrhythmia PT, OT, speech therapy DVT prophylaxis: Heparin 5000 units subcu every 8 hours Overall prognosis is guarded to poor based upon a large stroke, and pre-existing metastatic cancer. Neurology will continue to follow. Thank you for the consult. Time with Patient: Greater than 30
[2024-03-27] MEDS: ASPIRIN 300 MG SUPP RECTAL SCH (02:57)
[2024-03-27] MEDS: HEPARIN SODIUM,PORCINE 5,000 UNIT/ML 1 ML VIAL SQ SCH (02:58)
[2024-03-27 06:46] LABS: Glucose,Whole Blood 159 mg/dL (70-110)
[2024-03-27 08:29] LABS: HCT 35.4 % (39.6-50.0); HGB 10.8 g/dL (13.0-17.0); MCH 25.5 pg (27.0-32.0); MCHC 30.5 g/dL (32.0-37.0); MCV 83.7 FL (80.0-97.0); NRBC Per 100 WBC 0 X 10*3/uL (0.00-0.01); Platelet Count 154 X 10*3/uL (140-440); RBC 4.23 X 10*6/uL (4.40-5.60); RDW 19.2 % (11.5-14.5); WBC 13.59 X 10*3/uL (4.50-10.00)
[2024-03-27 08:34] LABS: BUN/Creat Ratio 29.33 Ratio (12.00-20.00); Blood Urea Nitrogen 17.6 mg/dL (9.0-27.0); Carbon Dioxide 22.1 mmol/L (21.6-31.8); Chloride 106 mmol/L (96-109); Glucose 161 mg/dL (70-110); Potassium 3.8 mmol/L (3.5-5.5); Sodium 136 mmol/L (135-145)
[2024-03-27 08:35] LABS: ALT 22 U/L (10-49); AST 70 U/L (14-35); Albumin 2.2 g/dL (3.8-4.9); Albumin/Globulin Ratio 0.56 Ratio (1.60-3.17); Alkaline Phosphatase 184 U/L (41-126); Calcium 7.6 mg/dL (8.7-10.3); Globulin 3.9 g/dL (1.6-3.3); Total Bilirubin 1.1 mg/dL (0.3-1.2); Total Protein 6.1 g/dL (6.2-8.2)
[2024-03-27 10:27] LABS: Anisocytosis (M) 2+ (None Seen); Basophils # (A) 0.03 X 10*3/uL (0.00-0.10); Basophils % (A) 0.2 %; Eosinophils # (A) 0.07 X 10*3/uL (0.04-0.35); Eosinophils % (A) 0.5 %; Lymphocytes # (A) 1.13 X 10*3/uL (0.90-5.00); Lymphocytes % (A) 8.3 %; Monocytes # (A) 1.66 X 10*3/uL (0.20-1.00); Monocytes % (A) 12.2 %; Neutrophils # (A) 10.61 X 10*3/uL (1.80-7.70); Neutrophils % (A) 78.1 %
--- NOTE | 2024-03-27 12:03 | P.PN ---
Subjective Progress Note Date: 03/27/24 HISTORY OF PRESENT ILLNESS: This is a 74-year-old male with a previous medical history significant for hypertension and hypertensive cardiovascular disease, mixed hyperlipidemia, diabetes mellitus type 2, history of hypothyroidism, anxiety disorder, history of obesity, patient was diagnosed with a stage IV pancreatic cancer back in April 2023 at that time he was evaluated at [facility] and he has been following with hematology oncology down there, he did receive initially Abraxane as well as Gemzar subsequently was placed on FOLFIRI as well as [place] chemotherapy, as a palliative treatment without intent for cure, patient has been having significant side effect of the medication and the treatment, has been having diarrhea on and off, he has been losing a lot of kaila ght, patient was recently hospitalized at [facility] in [place] for what appears to be an acute sepsis and he was found to have an acute CVA at that time with the right upper extremity and right lower extremity weakness, at that time he was seen in consultation by neurology as well as by cardiology it was thought that the patient could not have any further intervention due to his cancer situation, patient also was treated for what appears to be a sepsis at that time a his Mediport was removed, and he was started on IV antibiotic at that time, subsequently was switched to oral cephalexin as well as vancomycin as a prophylactic treatment for C. difficile colitis, patient just left the hospital not too long ago yesterday patient became quite confused and combative, he was not able to see anything at that time, he was not able to say 1 way or the other, he was withdrawn combative not able to do anything at that time, so EMS was called and the patient was brought into the emergency department at [facility] patient's was seen and evaluated in the ER, had a CT scan of brain that showed evidence of an old CVA in the left inferior temporal occipital lobe, patient appears to be aphasic and not responding to any stimuli, he is withdrawn, he has significant right upper and right lower extremity weakness, I had a long conversation with the emergency room physician about transferring the patient back to [facility] for evaluation since he was just left the hospital less than 7 days ago, but the family insisted in keeping the patient up in our hospital, patient was found to have a troponin of 3.7, he was ruled in for non-ST elevation TN, he was seen in consultation by cardiology as well as by neurology, I have ordered MRI of the brain with and without toña, ultrasound the carotid as well as echocardiogram at this time, patient is not able to say 1 where the other what he wants to do at this point in time, his and his son were at the bedside, I had a long conversation with the patient family and they were in agreement for the patient to be a no code at this point in time, his stated that she had a conversation with the nurse at [facility] regarding palliative care and she was supposed to have a meeting with her next Saturday I believe the patient is ready for palliative care at this point in time, we will continue with current treatment plan for now, will see our consultants opinion about his current situation, but definitely patient is not a candidate for any further treatment at this point in time, continue Escalante catheter for now, continue to follow-up with the patient very closely, I think the patient and the family are leaning toward [facility] with palliative care at this point in time. 03/26: Patient is laying down in bed he is is quite drowsy, he opens his eyes in response to verbal stimuli, he does not follow any command at this time, he is ignoring his right side, he has right-sided neglect he is not following any command at this point in time, his and his son were at the bedside, I spoke with both of them about the importance of signing him to a palliative care at this point in time, I do not believe that the patient will do well down the line and he is not a candidate for any further intervention at this point in time, I will get speech therapy, evaluated the patient to see if the patient's name is able to take his medication I will try to shoot for the patient to go to [facility] for palliative care hopefully in the next 24 hours. 03/27: Patient is laying down in bed in no apparent distress, he does not appear in any acute pain at this time, he is not following any commands at this time, he would be seen by speech therapy for evaluation of his swallowing, hopefully will be able to start the patient back on his medication, patient's will meet with the hospice nurse today, and the plan to try to get the patient into the hospice home if he has coverage for that, the prognosis at this point is dismal, patient may go for an MRI of the brain with and without toña for further evaluation he just had 1 on March 10, 2024 at [facility]. REVIEW OF SYSTEMS: Constitutional: positive for documented fever, no chills, no night sweats. positive for weight change. positive for weakness, positive for fatigue or lethargy. positive for daytime sleepiness. EENT: No headache. No blurred vision or double vision, no loss of vision. No loss of Hearing, no ringing in the ears, no dizziness. No nasal drainage or congestion. No epistaxis. No sore throat. Lungs: No shortness of breath, no cough, no sputum production. No wheezing. Reports dyspnea with activity. Cardiovascular: No chest pain, no lower extremity edema. No palpitations. No paroxysmal nocturnal dyspnea. No orthopnea. No lightheadedness or dizziness. No syncopal episodes. Abdominal: Reports no abdominal pain. No nausea, vomiting. No diarrhea. positive for constipation. No bloody or tarry stools reports loss of appetite. Genitourinary: No dysuria, increased frequency, urgency. No urinary retention. Musculoskeletal: No myalgias. right upper and lower extremities weakness, positive for gait dysfunction, no frequent falls. positive for back pain. No neck pain. Integumentary: No wounds, no lesions. No rash or pruritus. No unusual bruising. No change in hair or nails. Neurologic: positive for aphasia. positive for facial droop. positive for change in mentation. No head injury. No headache. positive for paralysis right upper and lower extremity Psychiatric: Positive for depression and anxiety. No mood swings. Endocrine: No abnormal blood sugars. positive for weight change. PHYSICAL EXAMINATION: General: 74-year-old male laying down in bed appears to be in no di stress does not follow any commands. HEENT: Head is atraumatic, normocephalic, pupils were equal round reactive to light and recommendation, extraocular muscle movement were intact, sclera nonicteric, conjunctivae were pale, mucous membranes of the mouth are somewhat dry. Neck: Supple, no JVP, normal carotid upstroke bilaterally, no lymphadenopathy. Chest: Decreased breath sounds at the bases, few rhonchi, no expiratory wheezes, no chest wall tenderness, no intercostal retractions. Heart: First heart sound is normal, second heart sounds normal Abdomen: Soft, nontender, nondistended, positive bowel sounds. Extremities: There is no edema no calf tenderness DP +2 bilaterally. Neurologic examination: Patient is awake alert and oriented x 1, patient appears to have a right-sided neck lack, he does appear to have a right upper extremity right lower extremity weakness, he is gazing to the left. He is aphasic not following any command. ASSESSMENT AND PLAN: 1. Non-ST elevation TN in a patient with a history of stage IV pancreatic cancer. At this point in time, I had a long conversation with the patient's and his son at the bedside, I believe the patient will benefit from palliative care at this point in time, he is not a candidate for any invasive procedure at this point in time, he is not a candidate for short for left heart catheterization at this point, I have obtained an echocardiogram for evaluation for LV function, continue to monitor the patient very closely at this point in time patient is not able to take any medication at this time, speech therapy evaluation to see if the patient is able to take anything at this time if that is not the case patient need to be started on palliative/comfort care and [facility] if that is okay social media project manager consultation will be obtained. Continue patient on atorvastatin 5 mg once every day, continue aspirin 325 g once every day. 2. Recent subacute infarct in the left inferior occipital/temporal lobe injury likely related to recent stroke. I obtain ultrasound the carotid did not show evidence of acute abnormality less than 50% stenosis, echocardiogram did show evidence of ejection fraction 55%, inferior basal hypokinesia as well, MRI of the brain with and without toña was ordered still pending the time dictation, neurology consultation still in order. Patient is not a candidate for any invasive procedure or any thrombolytic at this time. Speech therapy evaluation, physical therapy evaluation keep the patient on nothing per mouth until evaluated by speech therapy. 3. History of DVT of the left lower extremity. Patient has been on Eliquis for 9-month, will discontinue that for now. 4. History of stage IV pancreatic cancer under the care of hematology oncology at [facility]. In [facility]. Family at this time decided not to go for any further treatment we will continue to monitor the patient very closely, patient meets the criteria for palliative care hopefully will try to transition the patient into [facility] if there is no further help is available at this time, she was given the option of talking to the palliative care nurse that she already talked to her and she wants him to be home with palliative care at this time. 5. Hypertension and hypertensive cardiovascular disease. Continue patient on metoprolol 50 mg orally twice every day, lisinopril 2.5 mg once every day monitor the patient blood pressure very closely. 6. Mixed hyperlipidemia. Continue patient on atorvastatin 20 mg orally once every day, monitor lipid panel, keep LDL 55-70. 7. Diabetes mellitus type 2. Continue sliding scale insulin for now, continue Farxiga 10 mg orally once every day. 8. Hypothyroidism. Continue Synthroid 112 mcg orally once every day monitor TSH and free T4. 9. Anxiety disorder. Continue Zoloft 50 mg once every day, continue trazodone 50 mg orally once every day as well. 10. DVT prophylaxis. Patient was started on heparin 5000 subcutaneously every 8 hours. 11. GI prophylaxis. Continue Protonix 40 mg orally once every day. 12. Very poor prognosis. 13. Patient is DNR. Objective - Vital Signs Vital signs: Vital Signs Temp 97.1 F L 03/26/24 22:17 Pulse 71 03/26/24 18:00 Resp 17 03/26/24 22:17 BP 143/71 03/26/24 22:17 Pulse Ox 99 03/26/24 18:00 FiO2 Intake & Output 03/26/24 03/26/24 03/27/24 06:59 18:59 06:59 Weight 102 kg - Labs CBC & Chem 7: 03/27/24 04:11 03/27/24 04:11 Labs: Abnormal Lab Results - Last 24 Hours (Table) 03/26/24 03/26/24 03/26/24 Range/Units 06:22 06:22 06:22 WBC 14.9 H (3.8-10.6) k/uL RBC 3.84 L (4.30-5.90) m/uL Hgb 10.4 L (13.0-17.5) gm/dL Hct 32.1 L (39.0-53.0) % RDW 17.8 H (11.5-15.5) % Neutrophils # 11.9 H (1.3-7.7) k/uL Monocytes # 1.4 H (0-1.0) k/uL Sodium 134 L (137-145) mmol/L POC Glucose (mg/dL) (70-110) mg/dL Calcium 7.7 L (8.4-10.2) mg/dL Total Bilirubin 1.5 H (0.2-1.3) mg/dL AST 67 H (17-59) U/L Alkaline Phosphatase 261 H (38-126) U/L Total Protein 6.1 L (6.3-8.2) g/dL Albumin 2.2 L (3.5-5.0) g/dL HDL Cholesterol 16.20 L (40.00-60.00) mg/dL 03/26/24 Range/Units 21:27 WBC (3.8-10.6) k/uL RBC (4.30-5.90) m/uL Hgb (13.0-17.5) gm/dL Hct (39.0-53.0) % RDW (11.5-15.5) % Neutrophils # (1.3-7.7) k/uL Monocytes # (0-1.0) k/uL Sodium (137-145) mmol/L POC Glucose (mg/dL) 140 H (70-110) mg/dL Calcium (8.4-10.2) mg/dL Total Bilirubin (0.2-1.3) mg/dL AST (17-59) U/L Alkaline Phosphatase (38-126) U/L Total Protein (6.3-8.2) g/dL Albumin (3.5-5.0) g/dL HDL Cholesterol (40.00-60.00) mg/dL Microbiology - Last 24 Hours (Table) 03/25/24 14:29 Urine Culture - Final Urine,Voided
[2024-03-27] MEDS: ASPIRIN 325 MG TAB PO SCH (12:40)
--- NOTE | 2024-03-27 15:33 | MR ---
INDICATION: Patient age:Male; 74 years old; Reason for study: CVA; PHH. COMPARISON: CT brain 03/25/2024. TECHNIQUE: Multi planar, multi sequence imaging was performed through the brain. The patient was then given 10 cc of Gadobutrol intravenously and multi planar, T1 fat-saturation images were obtained. FINDINGS: The rabago-white junctions, ventricular system, basal cisterns appear unremarkable. Age-appropriate dif fuse cerebral volume loss. Large region of restricted diffusion involving the left MCA territory of t he left frontal lobe, parietal, and temporal lobes. Additional foci and small regions of restricted d iffusion within the bilateral occipital lobes and right frontal and parietal lobes. There is correspo nding regions and foci of FLAIR signal hyperintensity. There is abrupt cut off of the left MCA M2 seg ment in the sylvian fissure with corresponding susceptibility blooming artifact. There is correspondi ng cut off of the vessel on postcontrast imaging. Midline structures show no abnormality. After admin istration of gadolinium, there is gyral formal enhancement identified within the left occipital lobe. There is corresponding susceptibility blooming artifact is identified within this region. The bone marrow signal is within normal limits. Bilateral aphakia. Left maxillary sinus 6 mm mucus re tention cyst. IMPRESSION: Large left MCA territory acute/subacute ischemia with additional prominent region within the left occ ipital lobe. Additional scattered foci of restricted diffusion within the bilateral frontal, parietal , and occipital lobes. Additional foci within the left temporal lobe. Corresponding gyral enhancement within the left occipital lobe related to CVA. Regions of hemosiderin deposition identified within t he left occipital lobe gyri and abrupt cut off with hemosiderin deposition of the M2 segment of the l eft MCA. Distribution suggests embolic phenomenon. A [place] critical message alert has been initiated for Destiny Lindquist MD via the [employer] on 03/27/2024 3:29 PM. This message alert has been sent to Destiny Lindquist MD via [facility] preferences provided by the clinician for the receipt of Radiology Critical Findings. Message ID [id number]. [facility], , 03/27/2024 3:29 PM [facility], , 03/27/2024 3:30 PM
--- NOTE | 2024-03-27 16:38 | P.PN ---
Subjective HISTORY OF PRESENTING ILLNESS This is a pleasant 74-year-old with past medical history significant for DVT, pancreatic cancer with metastasis, hypothyroidism, diabetes mellitus type 2, recent stroke. Patient had recently been at [facility] and had some confusion and was discharged home. He was placed on Eliquis in the past secondary to history of DVT. He presented to the hospital with altered mental status. Cardiology was consult if her non-STEMI. 03/27 Patient underwent echo which showed EF 50-55% with apical and inferior septal h ypokinesis. May be consistent with takotsubo's cardiomyopathy. Patient underwent MRI with large area of stroke with concern of metabolic etiology. Patient not improving mentally and family considering hospice. PHYSICAL EXAMINATION Vital signs reviewed. CONSTITUTIONAL: No apparent distress, not answering questions appropriately HEENT: Head is normocephalic. Pupils are equal, round. Sclerae anicteric. Mucous membranes of the mouth are moist. No JVD. No carotid bruit. CHEST EXAMINATION: Lungs are clear to auscultation. No chest wall tenderness is noted on palpation or with deep breathing. HEART EXAMINATION: Regular rate and rhythm. S1, S2 heard. No murmurs, gallops or rub. ABDOMEN: Soft, nontender. Positive bowel sounds. EXTREMITIES: 2+ peripheral pulses, no lower extremity edema and no calf tenderness. NEUROLOGIC EXAMINATION: Patient is somnolent but comfortable ASSESSMENT Non-STEMI likely Takotsubo's cardiomyopathy related to CVA, cancer Altered mental status Acute stroke History of DVT History of metastatic pancreatic cancer PLAN Patient with non-STEMI and appears related to either type II mechanism or stress-induced cardiomyopathy. Continue with supportive care. Family c onsidered hospice which is appropriate. No further recommendations. Please call with any questions. Objective - Vital Signs Vital signs: Vital Signs Temp 97.1 F L 03/27/24 12:45 Pulse 79 03/27/24 12:45 Resp 18 03/27/24 12:45 BP 167/83 03/27/24 12:45 Pulse Ox 97 03/27/24 12:45 FiO2 Intake & Output 03/26/24 03/27/24 03/27/24 18:59 06:59 18:59 Weight 102 kg 105.5 kg Other: Voiding Method Incontinent # Voids 2 - Labs CBC & Chem 7: 03/27/24 04:11 03/27/24 04:11 Labs: Abnormal Lab Results - Last 24 Hours (Table) 03/26/24 03/27/24 03/27/24 Range/Units 21:27 04:11 04:11 WBC 13.59 H (4.50-10.00) X 10*3/uL RBC 4.23 L (4.40-5.60) X 10*6/uL Hgb 10.8 L (13.0-17.0) g/dL Hct 35.4 L (39.6-50.0) % MCH 25.5 L (27.0-32.0) pg MCHC 30.5 L (32.0-37.0) g/dL RDW 19.2 H (11.5-14.5) % Immature Gran # 0.09 H (0.00-0.04) X 10*3/uL Neutrophils # 10.61 H (1.80-7.70) X 10*3/uL Monocytes # 1.66 H (0.20-1.00) X 10*3/uL Anisocytosis (manual) 2+ A (None Seen) BUN/Creatinine Ratio 29.33 H (12.00-20.00) Ratio Glucose 161 H (70-110) mg/dL POC Glucose (mg/dL) 140 H (70-110) mg/dL Calcium 7.6 L (8.7-10.3) mg/dL AST 70 H (14-35) U/L Alkaline Phosphatase 184 H (41-126) U/L Total Protein 6.1 L (6.2-8.2) g/dL Albumin 2.2 L (3.8-4.9) g/dL Globulin 3.9 H (1.6-3.3) g/dL Albumin/Globulin Ratio 0.56 L (1.60-3.17) Ratio 03/27/24 Range/Units 06:45 WBC (4.50-10.00) X 10*3/uL RBC (4.40-5.60) X 10*6/uL Hgb (13.0-17.0) g/dL Hct (39.6-50.0) % MCH (27.0-32.0) pg MCHC (32.0-37.0) g/dL RDW (11.5-14.5) % Immature Gran # (0.00-0.04) X 10*3/uL Neutrophils # (1.80-7.70) X 10*3/uL Monocytes # (0.20-1.00) X 10*3/uL Anisocytosis (manual) (None Seen) BUN/Creatinine Ratio (12.00-20.00) Ratio Glucose (70-110) mg/dL POC Glucose (mg/dL) 159 H (70-110) mg/dL Calcium (8.7-10.3) mg/dL AST (14-35) U/L Alkaline Phosphatase (41-126) U/L Total Protein (6.2-8.2) g/dL Albumin (3.8-4.9) g/dL Globulin (1.6-3.3) g/dL Albumin/Globulin Ratio (1.60-3.17) Ratio Microbiology - Last 24 Hours (Table) 03/25/24 14:29 Urine Culture - Final Urine,Voided
[2024-03-27 16:44] LABS: Glucose,Whole Blood 162 mg/dL (70-110)
[2024-03-27 22:15] LABS: Glucose,Whole Blood 171 mg/dL (70-110)
[2024-03-27] MEDS: guaiFENesin 600 MG TABLET.ER PO SCH (22:56)
[2024-03-28 06:36] LABS: Glucose,Whole Blood 162 mg/dL (70-110)
--- NOTE | 2024-03-28 09:11 | P.PN ---
Subjective Progress Note Date: 03/27/24 Patient was seen for a follow-up. Patient's and patient's son were present by the bedside. Patient has just returned back from MRI. They mentioned that patient is having a lot of phlegm. Sometimes gurgling. Still no speech. Still hemiplegic on the right side. He is able to swallow. Patient's mentions that he has little more facial expression. He is reaching for people, picking hands in front of his vision, almost as if checking his vision. No new concerns. Objective - Vital Signs Vital signs: Vital Signs Temp 97.1 F L 03/27/24 12:45 Pulse 79 03/27/24 12:45 Resp 18 03/27/24 12:45 BP 167/83 03/27/24 12:45 Pulse Ox 97 03/27/24 12:45 FiO2 Intake & Output 03/26/24 03/27/24 03/27/24 18:59 06:59 18:59 Weight 102 kg 105.5 kg Other: Voiding Method Incontinent # Voids 2 - Exam Patient continues to be mute. Right hemiplegic. Patient has moved up side spontaneously. Visual blanco difficult to assess. Patient did follow directions, as he pointed to the door, and to the ceiling with his eyes clearly. He does squeeze hand. However not very good in falling for directions. Patient is more awake as compared to yesterday. - Labs CBC & Chem 7: 03/27/24 04:11 03/27/24 04:11 Labs: Abnormal Lab Results - Last 24 Hours (Table) 03/26/24 03/27/24 03/27/24 Range/Units 21:27 04:11 04:11 WBC 13.59 H (4.50-10.00) X 10*3/uL RBC 4.23 L (4.40-5.60) X 10*6/uL Hgb 10.8 L (13.0-17.0) g/dL Hct 35.4 L (39.6-50.0) % MCH 25.5 L (27.0-32.0) pg MCHC 30.5 L (32.0-37.0) g/dL RDW 19.2 H (11.5-14.5) % Immature Gran # 0.09 H (0.00-0.04) X 10*3/uL Neutrophils # 10.61 H (1.80-7.70) X 10*3/uL Monocytes # 1.66 H (0.20-1.00) X 10*3/uL Anisocytosis (manual) 2+ A (None Seen) BUN/Creatinine Ratio 29.33 H (12.00-20.00) Ratio Glucose 161 H (70-110) mg/dL POC Glucose (mg/dL) 140 H (70-110) mg/dL Calcium 7.6 L (8.7-10.3) mg/dL AST 70 H (14-35) U/L Alkaline Phosphatase 184 H (41-126) U/L Total Protein 6.1 L (6.2-8.2) g/dL Albumin 2.2 L (3.8-4.9) g/dL Globulin 3.9 H (1.6-3.3) g/dL Albumin/Globulin Ratio 0.56 L (1.60-3.17) Ratio / Range/Units 06:45 WBC (4.50-10.00) X 10*3/uL RBC (4.40-5.60) X 10*6/uL Hgb (13.0-17.0) g/dL Hct (39.6-50.0) % MCH (27.0-32.0) pg MCHC (32.0-37.0) g/dL RDW (11.5-14.5) % Immature Gran # (0.00-0.04) X 10*3/uL Neutrophils # (1.80-7.70) X 10*3/uL Monocytes # (0.20-1.00) X 10*3/uL Anisocytosis (manual) (None Seen) BUN/Creatinine Ratio (12.00-20.00) Ratio Glucose (70-110) mg/dL POC Glucose (mg/dL) 159 H (70-110) mg/dL Calcium (8.7-10.3) mg/dL AST (14-35) U/L Alkaline Phosphatase (41-126) U/L Total Protein (6.2-8.2) g/dL Albumin (3.8-4.9) g/dL Globulin (1.6-3.3) g/dL Albumin/Globulin Ratio (1.60-3.17) Ratio Microbiology - Last 24 Hours (Table) 03/25/24 14:29 Urine Culture - Final Urine,Voided Assessment and Plan Assessment: * Acute ischemic stroke, large size involving the left MCA territory, manifesting with global aphasia and right hemiplegia. Patient was not a candidate for TNK because of recent stroke. * Recent acute CVA 03/09/2024 involving the left occipital lobe with right sided visual field deficit. * Hypertension * Diabetes * Stage IV pancreatic cancer Plan: MRI of the brain with and without contrast, revealed large left MCA territory a cute/subacute ischemia with additional prominent region within the left occipital lobe. Additional scattered foci of restricted diffusion within the bilateral frontal, parietal and occipital lobes. Additional foci within the left temporal lobe. Corresponding gyral enhancement within the left occipital lobe related to CVA. Regions of hemosiderin deposition identified within the left occipital lobe gyri and abrupt cutoff with hemosiderin deposition of the M2 segment of the left MCA. Distribution suggests embolic phenomenon. I personally reviewed MRI agree with the findings. I reviewed patient's MRI films on the computer, with patient's family, and answered all their questions. 2-D echo revealed LV EF 50-55%. Inferior septal and apical hypokinesis. Mildly increased left atrial volume. No significant valvular abnormalities. Carotid Doppler, revealed less than 50% stenosis of either carotid bifurcations. Right vertebral artery unable to visualize, left vertebral artery had antegrade flow. Fasting a.m. lipid panel cholesterol 90, LDL 57, HDL 16, triglycerides 82. Continue Lipitor 20 mg daily. Hemoglobin A1c 5.4 Patient was on Eliquis 5 mg twice a day, and was compliant with the medication since discharge from [facility]. Uncertain as to the cause of another stroke. Perhaps related to hypercoagulable state from stage IV pancreatic cancer. Patient had passed some swallow. Patient able to take aspirin 325 mg daily with applesauce. Hold off on Eliquis because of large stroke and risk of hemorrhagic conversion. Permissive hypertension for next 24-48 hours Neuro checks every 2 hours. Telemetry monitoring rule out any arrhythmia PT, OT, speech therapy DVT prophylaxis: Heparin 5000 units subcu every 8 hours Overall prognosis is guarded to poor based upon a large stroke, and pre-existing metastatic cancer. Patient is no code. Discussed with family members.
[2024-03-28] MEDS: ZINC OXIDE PASTE (Z-GUARD) 1 APPLIC TOPICAL PRN (10:24)
[2024-03-28 11:14] LABS: Glucose,Whole Blood 133 mg/dL (70-110)
[2024-03-28] MEDS ORDERED: hydrALAZINE HCL 20 MG/ML 1 ML VIAL IVP PRN (13:45)
--- NOTE | 2024-03-28 13:46 | P.PN ---
Subjective Progress Note Date: 03/28/24 Interval History: This is a 74-year-old male with a previous medical history significant for hypertension and hypertensive cardiovascular disease, mixed hyperlipidemia, diabetes mellitus type 2, history of hypothyroidism, anxiety disorder, history of obesity, patient was diagnosed with a stage IV pancreatic cancer back in April 2023 at that time he was evaluated at [facility] and he has been following with hematology oncology down there, he did receive initially Abraxane as well as Gemzar subsequently was placed on FOLFIRI as well as grayling chemotherapy, as a palliative treatment without intent for cure, patient has been having significant side effect of the medication and the treatment, has been having diarrhea on and off, he has been losing a lot of weight, patient was recently hospitalized at [facility] in [place] for what appears to be an acute sepsis and he was found to have an acute CVA at that time with the right upper extremity and right lower extremity weakness, at that time he was seen in consultation by neurology as well as by cardiology it was thought that the patient could not have any further intervention due to his cancer situation, patient also was treated for what appears to be a sepsis at that time a his Mediport was removed, and he was started on IV antibiotic at that time, subsequently was switched to oral cephalexin as well as vancomycin as a prophylactic treatment for C. difficile colitis, patient just left the hospital not too long ago yesterday patient became quite confused and combative, he was not able to see anything at that time, he was not able to say 1 way or the other, he was withdrawn combative not able to do anything at that time, so EMS was called and the patient was brought into the emergency department at [facility] patient's was seen and evaluated in the ER, had a CT scan of brain that showed evidence of an old CVA in the left inferior temporal occipital lobe, patient appears to be aphasic and not responding to any stimuli, he is withdrawn, he has significant right upper and right lower extremity weakness, I had a long conversation with the emergency room physician about transferring the patient back to [facility] for evaluation since he was just left the hospital less than 7 days ago, but the family insisted in keeping the patient up in our hospital, patient was found to have a troponin of 3.7, he was ruled in for non-ST elevation IL, he was seen in consultation by cardiology as well as by neurology, I have ordered MRI of the brain with and without toña, ultrasound the carotid as well as echocardiogram at this time, patient is not able to say 1 where the other what he wants to do at this point in time, his and his son were at the bedside, I had a long conversation with the patient family and they were in agreement for the patient to be a no code at this point in time, his stated that she had a conversation with the nurse at [facility] regarding palliative care and she was supposed to have a meeting with her next Saturday I believe the patient is ready for palliative care at this point in time, we will continue with current treatment plan for now, will see our consultants opinion about his current situation, but definitely patient is not a candidate for any further treatment at this point in time, continue Escalante catheter for now, continue to follow-up with the patient very closely, I think the patient and the family are leaning toward [facility] with palliative care at this point in time. 03/26: Patient is laying down in bed he is is quite drowsy, he opens his eyes in response to verbal stimuli, he does not follow any command at this time, he is ignoring his right side, he has right-sided neglect he is not following any command at this point in time, his and his son were at the bedside, I spoke with both of them about the importance of signing him to a palliative care at this point in time, I do not believe that the patient will do well down the line and he is not a candidate for any further intervention at this point in time, I will get speech therapy, evaluated the patient to see if the patient's name is able to take his medication I will try to shoot for the patient to go to [facility] for palliative care hopefully in the next 24 hours. 03/27: Patient is laying down in bed in no apparent distress, he does not appear in any acute pain at this time, he is not following any commands at this time, he would be seen by speech therapy for evaluation of his swallowing, hopefully will be able to start the patient back on his medication, patient's will meet with the hospice nurse today, and the plan to try to get the patient into the hospice home if he has coverage for that, the prognosis at this point is dismal, patient may go for an MRI of the brain with and without toña for further evaluation he just had 1 on March 10, 2024 at [facility]. 03/28--patient was seen and examined today. at bedside. Patient aphasic, right upper and lower extremity flaccid. Hospice consulted, awaiting evaluation. MRI brain yesterday showed large left MCA territory acute/subacute ischemia with additional prominent lesion within the left occipital lobe. Neurology followed the patient, recommended to hold off Eliquis. Vitals reviewed, blood pressure elevated. No new labs. Added Norvasc for blood pressure control, as needed hydralazine. Assessment and plan: 1. Non-ST elevation IL in a patient with a history of stage IV pancreatic cancer. Per previous Provider At this point in time, I had a long conversation with the patient's and his son at the bedside, I believe the patient will benefit from palliative care at this point in time, he is not a candidate for any invasive procedure at this point in time, he is not a candidate for short for left heart catheterization at this point, I have obtained an echocardiogram for evaluation for LV function, continue to monitor the patient very closely at this point in time patient is not able to take any medication at this time, speech therapy evaluation to see if the patient is able to take anything at this time if that is not the case patient need to be started on palliative/comfort care and hopefully move him into [facility] if that is okay social services designee consultation will be obtained. Continue patient on atorvastatin 5 mg once every day, continue aspirin 325 g once every day. 2. Acute CVA: Recent subacute infarct in the left inferior occipital/temporal lobe injury likely related to recent stroke. I obtain ultrasound the carotid did not show evidence of acute abnormality less than 50% stenosis, echocardiogram did show e vidence of ejection fraction 55%, inferior basal hypokinesia as well. Patient is not a candidate for any invasive procedure or any thrombolytic at this time. Speech therapy evaluation, physical therapy evaluation. Repeat echocardiogram showed EF 50 to 55%. 3. History of DVT of the left lower extremity. Patient has been on Eliquis for 9-month, will discontinue that for now. 4. History of stage IV pancreatic cancer under the care of hematology oncology at [facility]. In [facility]. Family at this time decided not to go for any further treatment we will continue to monitor the patient very closely, patient meets the criteria for palliative care hopefully will try to transition the patient into [facility] if there is no further help is available at this time, she was given the option of talking to the palliative care nurse that she already talked to her and she wants him to be home with palliative care at this time. MRI of the brain with and without contrast, revealed large left MCA territory acute/subacute ischemia with additional prominent region within the left oc cipital lobe. Additional scattered foci of restricted diffusion within the bilateral frontal, parietal and occipital lobes. Additional foci within the left temporal lobe. Corresponding gyral enhancement within the left occipital lobe related to CVA. Regions of hemosiderin deposition identified within the left occipital lobe gyri and abrupt cutoff with hemosiderin deposition of the M2 segment of the left MCA. Distribution suggests embolic phenomenon. 5. Hypertension and hypertensive cardiovascular disease. Continue patient on metoprolol 50 mg orally twice every day, lisinopril 2.5 mg once every day monitor the patient blood pressure very closely. 6. Mixed hyperlipidemia. Continue patient on atorvastatin 20 mg orally once every day, monitor lipid panel, keep LDL 55-70. 7. Diabetes mellitus type 2. Continue sliding scale insulin for now, continue Farxiga 10 mg orally once every day. 8. Hypothyroidism. Continue Synthroid 112 mcg orally once every day monitor TSH and free T4. 9. Anxiety disorder. Continue Zoloft 50 mg once every day, continue trazodone 50 mg orally once every day as well. 10. DVT prophylaxis. Patient was started on heparin 5000 subcutaneously every 8 hours. 11. GI prophylaxis. Continue Protonix 40 mg orally once every day. 12. Very poor prognosis. 13. Patient is DNR. Disposition: Hospice consulted, thinking about discharging to hospice home. Monitor vital signs and labs Labs and medication were reviewed. Continue same treatment. Further recommendations as per clinical course of the patient PHYSICAL EXAMINATION: GENERAL: NAD, aphasia HEENT: EOMI, Sclerae anicteric, Moist Mucous membranes Neck: Supple, Non tender, No JVD PULMONARY: Equal breath souds B/L, No wheezing, No crackles. CARDIOVASCULAR: S1, S2 present. No murmurs, rubs, or gallops. ABDOMEN: Soft, nontender, nondistended, normoactive bowel sounds. No guarding or rebound tenderness. MUSCULOSKELETAL: No edema, No cyanosis. No clubbing. Normal ROM. Intact peripheral pulses. NEUROLOGICAL: Aphasia, right upper and lower extremity muscle strength0/5. Skin: No Rash REVIEW OF SYSTEMS: CONSTITUTIONAL: No fever or chills. CARDIOVASCULAR: No chest pain, palpitations or syncope. PULMONARY: No shortness of breath, no cough, sore throat. GASTROINTESTINAL: No nausea, vomiting, diarrhea, abdominal pain. : No Dysuria, urgency, frequency. Extremities: No edema. NEUROLOGICAL: No headaches, no weakness, or numbness Dictation was produced using [employer] dictation software. please excuse any grammatical, word or spelling errors. Objective - Vital Signs Vital signs: Vital Signs Temp 97.4 F L 03/28/24 07:22 Pulse 61 03/28/24 07:22 Resp 16 03/28/24 07:22 BP 184/81 03/28/24 07:22 Pulse Ox 98 03/28/24 07:22 FiO2 Intake & Output 03/27/24 03/28/24 03/28/24 18:59 06:59 18:59 Weight 109 kg Other: Voiding Method Incontinent Incontinent Incontinent # Voids 1 2 - Labs CBC & Chem 7: 03/27/24 04:11 03/27/24 04:11 Labs: Abnormal Lab Results - Last 24 Hours (Table) 03/27/24 03/27/24 03/28/24 Range/Units 16:43 22:14 06:33 POC Glucose (mg/dL) 162 H 171 H 162 H (70-110) mg/dL 03/28/24 Range/Units 11:12 POC Glucose (mg/dL) 133 H (70-110) mg/dL Microbiology - Last 24 Hours (Table) 03/25/24 14:29 Urine Culture - Final Urine,Voided Yeast species
[2024-03-28] MEDS: amLODIPine 5 MG TAB PO SCH (15:04)
[2024-03-28] MEDS: haloperidoL 5 MG TAB PO PRN (15:24)
[2024-03-28 16:34] LABS: Glucose,Whole Blood 118 mg/dL (70-110)
[2024-03-28 19:49] LABS: Glucose,Whole Blood 140 mg/dL (70-110)
--- NOTE | 2024-03-28 22:09 | P.PN ---
Subjective Progress Note Date: 03/28/24 Patient was seen for a follow-up. Patient's was present by the bedside. Patient is more alert and awake, he is trying to speak, but not able to express himself. He gets frustrated. He continues to be aphasic and right hemiplegic. Objective - Vital Signs Vital signs: Vital Signs Temp 97.5 F L 03/28/24 14:03 Pulse 54 L 03/28/24 14:03 Resp 16 03/28/24 14:03 BP 156/73 03/28/24 14:03 Pulse Ox 97 03/28/24 14:03 FiO2 Intake & Output 03/27/24 03/28/24 03/28/24 18:59 06:59 18:59 Weight 109 kg Other: Voiding Method Incontinent Incontinent Incontinent # Voids 1 2 - Exam Patient is very alert and awake. Patient is no distress. He does make eye contact. Patient continues to be mute, although he is trying to speak and some phonetics are coming. Only once he said "yes". Patient continues to be right hemiplegic. - Labs CBC & Chem 7: 03/27/24 04:11 03/27/24 04:11 Labs: Abnormal Lab Results - Last 24 Hours (Table) 03/27/24 03/27/24 03/28/24 Range/Units 16:43 22:14 06:33 POC Glucose (mg/dL) 162 H 171 H 162 H (70-110) mg/dL 03/28/24 Range/Units 11:12 POC Glucose (mg/dL) 133 H (70-110) mg/dL Microbiology - Last 24 Hours (Table) 03/25/24 14:29 Urine Culture - Final Urine,Voided Yeast species Assessment and Plan Assessment: * Acute ischemic stroke, large size involving the left MCA territory, manifesting with expressive aphasia and right hemiplegia. Patient was not a candidate for TNK because of recent stroke. * Recent acute CVA 03/09/2024 involving the left occipital lobe with right sided visual field deficit. * Hypertension * Diabetes * Hyperlipidemia * Stage IV pancreatic cancer Plan: MRI of the brain with and without contrast, revealed large left MCA territory acute/subacute ischemia with additional prominent region within the left occipital lobe. Additional scattered foci of restricted diffusion within the bilateral frontal, parietal and occipital lobes. Additional foci within the left temporal lobe. Corresponding gyral enhancement within the left occipital lobe related to CVA. Regions of hemosiderin deposition identified within the left occipital lobe gyri and abrupt cutoff with hemosiderin deposition of the M2 segment of the left MCA. Distribution suggests embolic phenomenon. I personally reviewed MRI agree with the findings. 2-D echo revealed LV EF 50-55%. Inferior septal and apical hypokinesis. Mildly increased left atrial volume. No significant valvular abnormalities. Carotid Doppler, revealed less than 50% stenosis of either carotid bifurcations. Right vertebral artery unable to visualize, left vertebral artery had antegrade flow. Fasting a.m. lipid panel cholesterol 90, LDL 57, HDL 16, triglycerides 82. Continue Lipitor 20 mg daily. Hemoglobin A1c 5.4 Patient was on Eliquis 5 mg twice a day, and was compliant with the medication since discharge from [facility]. Uncertain as to the cause of another stroke. Perhaps related to hypercoagulable state from stage IV pancreatic cancer. Patient had passed some swallow. Patient able to take aspirin 325 mg daily with applesauce. Hold off on Eliquis because of large stroke and risk of hemorrhagic conversion. Permissive hypertension for next 24-48 hours Neuro checks every 2 hours. Telemetry monitoring rule out any arrhythmia PT, OT, speech therapy DVT prophylaxis: Heparin 5000 units subcu every 8 hours Overall prognosis is guarded to poor based upon a large stroke, and pre-existing metastatic cancer. Patient is no code. Discussed with patient's . They're considering patient transition to hospi care.
[2024-03-29 07:05] LABS: Glucose,Whole Blood 149 mg/dL (70-110)
[2024-03-29 12:10] LABS: Glucose,Whole Blood 134 mg/dL (70-110)
--- NOTE | 2024-03-29 14:37 | P.PN ---
Subjective Progress Note Date: 03/29/24 Interval History: This is a 74-year-old male with a previous medical history significant for hypertension and hypertensive cardiovascular disease, mixed hyperlipidemia, diabetes mellitus type 2, history of hypothyroidism, anxiety disorder, history of obesity, patient was diagnosed with a stage IV pancreatic cancer back in April 2023 at that time he was evaluated at [facility] and he has been following with hematology oncology down there, he did receive initially Abraxane as well as Gemzar subsequently was placed on FOLFIRI as well as [facility] chemotherapy, as a palliative treatment without intent for cure, patient has been having significant side effect of the medication and the treatment, has been having diarrhea on and off, he has been losing a lot of weight, patient was recently hospitalized at [facility] in [place] for what appears to be an acute sepsis and he was found to have an acute CVA at that time with the right upper extremity and right lower extremity weakness, at that time he was seen in consultation by neurology as well as by cardiology it was thought that the patient could not have any further intervention due to his cancer situation, patient also was treated for what appears to be a sepsis at that time a his Mediport was removed, and he was started on IV antibiotic at that time, subsequently was switched to oral cephalexin as well as vancomycin as a prophylactic treatment for C. difficile colitis, patient just left the hospital not too long ago yesterday patient became quite confused and combative, he was not able to see anything at that time, he was not able to say 1 way or the other, he was withdrawn combative not able to do anything at that time, so EMS was called and the patient was brought into the emergency department at [facility] patient's was seen and evaluated in the ER, had a CT scan of brain that showed evidence of an old CVA in the left inferior temporal occipital lobe, patient appears to be aphasic and not responding to any stimuli, he is withdrawn, he has significant right upper and right lower extremity weakness, I had a long conversation with the emergency room physician about transferring the patient back to [facility] for evaluation since he was just left the hospital less than 7 days ago, but the family insisted in keeping the patient up in our hospital, patient was found to have a troponin of 3.7, he was ruled in for non-ST elevation OH, he was seen in consultation by cardiology as well as by neurology, I have ordered MRI of the brain with and without toña, ultrasound the carotid as well as echocardiogram at this time, patient is not able to say 1 where the other what he wants to do at this point in time, his and his son were at the bedside, I had a long conversation with the patient family and they were in agreement for the patient to be a no code at this point in time, his stated that she had a conversation with the nurse at [facility] regarding palliative care and she was supposed to have a meeting with her next Saturday I believe the patient is ready for palliative care at this point in time, we will continue with current treatment plan for now, will see our consultants opinion about his current situation, but definitely patient is not a candidate for any further treatment at this point in time, continue Escalante catheter for now, continue to follow-up with the patient very closely, I think the patient and the family are leaning toward [facility] with palliative care at this point in time. 03/26: Patient is laying down in bed he is is quite drowsy, he opens his eyes in response to verbal stimuli, he does not follow any command at this time, he is ignoring his right side, he has right-sided neglect he is not following any command at this point in time, his and his son were at the bedside, I spoke with both of them about the importance of signing him to a palliative care at this point in time, I do not believe that the patient will do well down the line and he is not a candidate for any further intervention at this point in time, I will get speech therapy, evaluated the patient to see if the patient's name is able to take his medication I will try to shoot for the patient to go to [facility] for palliative care hopefully in the next 24 hours. 03/27: Patient is laying down in bed in no apparent distress, he does not appear in any acute pain at this time, he is not following any commands at this time, he would be seen by speech therapy for evaluation of his swallowing, hopefully will be able to start the patient back on his medication, patient's will meet with the hospice nurse today, and the plan to try to get the patient into the hospice home if he has coverage for that, the prognosis at this point is dismal, patient may go for an MRI of the brain with and without toña for further evaluation he just had 1 on March 10, 2024 at [facility]. 03/28--patient was seen and examined today. at bedside. Patient aphasic, right upper and lower extremity flaccid. Hospice consulted, awaiting evaluation. MRI brain yesterday showed large left MCA territory acute/subacute ischemia with additional prominent lesion within the left occipital lobe. Neurology followed the patient, recommended to hold off Eliquis. Vitals reviewed, blood pressure elevated. No new labs. Added Norvasc for blood pressure control, as needed hydralazine. 03/29--- patient was seen and examined today. Continues to have aphasia, family at bedside reported that patient was unable to say 1 word no. Continues to be aphasic, right hemiplegic. Blood pressure still elevated, will increase Norvasc. No new labs today. Urine culture growing Nichole likely colonization. Family anticipate discharge to hospice home, awaiting hospice and case management follow-up. Assessment and plan: 1. Non-ST elevation OH in a patient with a history of stage IV pancreatic cancer. Per previous Provider At this point in time, I had a long conversation with the patient's and his son at the bedside, I believe the patient will benefit from palliative care at this point in time, he is not a candidate for any invasive procedure at this point in time, he is not a candidate for short for left heart catheterization at this point, I have obtained an echocardiogram for evaluation for LV function, continue to monitor the patient very closely at this point in time patient is not able to take any medication at this time, speech therapy evaluation to see if the patient is able to take anything at this time if that is not the case patient need to be started on palliative/comfort care and hopefully move him into [facility] if that is okay social insurance adviser consultation will be obtained. Continue patient on atorvastatin 5 mg once every day, continue aspirin 325 g once every day. 2. Acute CVA: Recent subacute infarct in the left inferior occipital/temporal lobe injury likely related to recent stroke. I obtain ultrasound the carotid did not show evidence of acute abnormality less than 50% stenosis, echocardiogram did show evidence of ejection fraction 55%, inferior basal hypokinesia as well. Patient is not a candidate for any invasive procedure or any thrombolytic at this time. Speech therapy evaluation, physical therapy evaluation. Repeat echocardiogram showed EF 50 to 55%. 3. History of DVT of the left lower extremity. Patient has been on Eliquis for 9-month, will discontinue that for now. 4. History of stage IV pancreatic cancer under the care of hematology oncology at [facility]. In [facility]. Family at this time decided not to go for any further treatment we will continue to monitor the patient very closely, patient meets the criteria for palliative care hopefully will try to transition the patient into [facility] if there is no further help is available at this time, she was given the option of talking to the palliative care nurse that she already talked to her and she wants him to be home with palliative care at this time. MRI of the brain with and without contrast, revealed large left MCA territory acute/subacute ischemia with additional prominent region within the left occipital lobe. Additional scattered foci of restricted diffusion within the bilateral frontal, parietal and occipital lobes. Additional foci within the left temporal lobe. Corresponding gyral enhancement within the left occipital lobe related to CVA. Regions of hemosiderin deposition identified within the left occipital lobe gyri and abrupt cutoff with hemosiderin deposition of the M2 segment of the left MCA. Distribution suggests embolic phenomenon. 5. Hypertension and hypertensive cardiovascular disease. Continue patient on metoprolol 50 mg orally twice every day, lisinopril 2.5 mg once every day monitor the patient blood pressure very closely. 6. Mixed hyperlipidemia. Continue patient on atorvastatin 20 mg orally once every day, monitor lipid panel, keep LDL 55-70. 7. Diabetes mellitus type 2. Continue sliding scale insulin for now, continue Farxiga 10 mg orally once every day. 8. Hypothyroidism. Continue Synthroid 112 mcg orally once every day monitor TSH and free T4. 9. Anxiety disorder. Continue Zoloft 50 mg once every day, continue trazodone 50 mg orally once every day as well. 10. DVT prophylaxis. Patient was started on heparin 5000 subcutaneously every 8 hours. 11. GI prophylaxis. Continue Protonix 40 mg orally once every day. 12. Very poor prognosis. 13. Patient is DNR. Disposition: Hospice consulted, thinking about discharging to hospice home. Monitor vital signs and labs Labs and medication were reviewed. Continue same treatment. Further recommendations as per clinical course of the patient PHYSICAL EXAMINATION: GENERAL: NAD, aphasia HEENT: EOMI, Sclerae anicteric, Moist Mucous membranes Neck: Supple, Non tender, No JVD PULMONARY: Equal breath souds B/L, No wheezing, No crackles. CARDIOVASCULAR: S1, S2 present. No murmurs, rubs, or gallops. ABDOMEN: Soft, nontender, nondistended, normoactive bowel sounds. No guarding or rebound tenderness. MUSCULOSKELETAL: No edema, No cyanosis. No clubbing. Normal ROM. Intact peripheral pulses. NEUROLOGICAL: Aphasia, right upper and lower extremity muscle strength0/5. Skin: No Rash REVIEW OF SYSTEMS: CONSTITUTIONAL: No fever or chills. CARDIOVASCULAR: No chest pain, palpitations or syncope. PULMONARY: No shortness of breath, no cough, sore throat. GASTROINTESTINAL: No nausea, vomiting, diarrhea, abdominal pain. : No Dysuria, urgency, frequency. Extremities: No edema. NEUROLOGICAL: No headaches, no weakness, or numbness Dictation was produced using [employer] dictation software. please excuse any grammatical, word or spelling errors. Objective - Vital Signs Vital signs: Vital Signs Temp 97.0 F L 03/29/24 07:56 Pulse 57 L 03/29/24 07:56 Resp 17 03/29/24 07:56 BP 169/82 03/29/24 07:56 Pulse Ox 97 03/29/24 07:56 FiO2 Intake & Output 03/28/24 03/29/24 03/29/24 18:59 06:59 18:59 Weight 106 kg Other: Voiding Method Incontinent Incontinent Incontinent # Voids 4 4 2 - Labs CBC & Chem 7: 03/27/24 04:11 03/27/24 04:11 Labs: Abnormal Lab Results - Last 24 Hours (Table) 03/28/24 03/28/24 03/29/24 Range/Units 16:33 19:47 07:01 POC Glucose (mg/dL) 118 H 140 H 149 H (70-110) mg/dL 03/29/24 Range/Units 12:08 POC Glucose (mg/dL) 134 H (70-110) mg/dL Microbiology - Last 24 Hours (Table) 03/25/24 14:29 Urine Culture - Final Urine,Voided Nichole species, not albicans
[2024-03-29 16:58] LABS: Glucose,Whole Blood 132 mg/dL (70-110)
[2024-03-29 20:50] LABS: Glucose,Whole Blood 119 mg/dL (70-110)
[2024-03-29] MEDS: ATORVASTATIN 40 MG TAB PO SCH (21:25)
--- NOTE | 2024-03-29 22:55 | P.PN ---
Subjective Progress Note Date: 03/29/24 Patient was seen for a follow-up. Patient's was present by the bedside. She believes patient is slightly worse today. He is not as expressive as yesterday. Continues to be mute, and right hemiplegic. No new concerns. Objective - Vital Signs Vital signs: Vital Signs Temp 97.0 F L 03/29/24 14:32 Pulse 69 03/29/24 14:32 Resp 17 03/29/24 14:32 BP 164/97 03/29/24 14:32 Pulse Ox 98 03/29/24 14:32 FiO2 Intake & Output 03/28/24 03/29/24 03/29/24 18:59 06:59 18:59 Weight 106 kg Other: Voiding Method Incontinent Incontinent Incontinent # Voids 4 4 2 - Exam Patient is slightly more groggy today. Patient is no distress. He does make eye contact. Patient continues to be mute, although he is trying to speak and some phonetics are coming. Only once he said "yes". Patient continues to be right hemiplegic. - Labs CBC & Chem 7: 03/27/24 04:11 03/27/24 04:11 Labs: Abnormal Lab Results - Last 24 Hours (Table) 03/28/24 03/28/24 03/29/24 Range/Units 16:33 19:47 07:01 POC Glucose (mg/dL) 118 H 140 H 149 H (70-110) mg/dL 03/29/24 Range/Units 12:08 POC Glucose (mg/dL) 134 H (70-110) mg/dL Microbiology - Last 24 Hours (Table) 03/25/24 14:29 Urine Culture - Final Urine,Voided Nichole species, not albicans Assessment and Plan Assessment: * Acute ischemic stroke, large size involving the left MCA territory, manifesting with expressive aphasia and right hemiplegia. Patient was not a candidate for TNK because of recent stroke. * Recent acute CVA 03/09/2024 involving the left occipital lobe with right sided visual field deficit. * Hypertension * Diabetes * Hyperlipidemia * Stage IV pancreatic cancer Plan: MRI of the brain with and without contrast, revealed large left MCA territory acute/subacute ischemia with additional prominent region within the left occipital lobe. Additional scattered foci of restricted diffusion within the bilateral frontal, parietal and occipital lobes. Additional foci within the left temporal lobe. Corresponding gyral enhancement within the left occipital lobe related to CVA. Regions of hemosiderin deposition identified within the left occipital lobe gyri and abrupt cutoff with hemosiderin deposition of the M2 segment of the left MCA. Distribution suggests embolic phenomenon. I per sonally reviewed MRI agree with the findings. 2-D echo revealed LV EF 50-55%. Inferior septal and apical hypokinesis. Mildly increased left atrial volume. No significant valvular abnormalities. Carotid Doppler, revealed less than 50% stenosis of either carotid bifurcations. Right vertebral artery unable to visualize, left vertebral artery had antegrade flow. Fasting a.m. lipid panel cholesterol 90, LDL 57, HDL 16, triglycerides 82. Continue Lipitor 20 mg daily. Hemoglobin A1c 5.4 Patient was on Eliquis 5 mg twice a day, and was compliant with the medication since discharge from [facility]. Uncertain as to the cause of another stroke. Perhaps related to hypercoagulable state from stage IV pancreatic cancer. Patient had passed some swallow. Patient able to take aspirin 325 mg daily with applesauce. Hold off on Eliquis because of large stroke and risk of hemorrhagic conversion. Optimize control of blood pressure. Neuro checks every 2 hours. Telemetry monitoring rule out any arrhythmia PT, OT, speech therapy DVT prophylaxis: Heparin 5000 units subcu every 8 hours Overall prognosis is guarded to poor based upon a large stroke, and pre-existing metastatic cancer. Patient is no code. Discussed with patient's . They have made decision for patient to go hos pice. They will talk to the 7th grade social studies teacher in the morning. Dr. Kojo Hernandez to start neurology service in the morning. Patient's at this time has no neurological concerns. We will sign off. She was advised to call neurology service if any concerns.
[2024-03-30 06:48] LABS: Glucose,Whole Blood 159 mg/dL (70-110)
[2024-03-30] MEDS: amLODIPine 10 MG TAB PO SCH (09:10)
[2024-03-30 11:43] LABS: Glucose,Whole Blood 134 mg/dL (70-110)
--- NOTE | 2024-03-30 12:25 | P.PN ---
Subjective Progress Note Date: 03/30/24 HISTORY OF PRESENT ILLNESS: This is a 74-year-old male with a previous medical history significant for hypertension and hypertensive cardiovascular disease, mixed hyperlipidemia, diabetes mellitus type 2, history of hypothyroidism, anxiety disorder, history of obesity, patient was diagnosed with a stage IV pancreatic cancer back in April 2023 at that time he was evaluated at [facility] and he has been following with hematology oncology down there, he did receive initially Abraxane as well as Gemzar subsequently was placed on FOLFIRI as well as tanacross chemotherapy, as a palliative treatment without intent for cure, patient has been having significant side effect of the medication and the treatment, has been having diarrhea on and off, he has been losing a lot of kaila ght, patient was recently hospitalized at [facility] in [place] for what appears to be an acute sepsis and he was found to have an acute CVA at that time with the right upper extremity and right lower extremity weakness, at that time he was seen in consultation by neurology as well as by cardiology it was thought that the patient could not have any further intervention due to his cancer situation, patient also was treated for what appears to be a sepsis at that time a his Mediport was removed, and he was started on IV antibiotic at that time, subsequently was switched to oral cephalexin as well as vancomycin as a prophylactic treatment for C. difficile colitis, patient just left the hospital not too long ago yesterday patient became quite confused and combative, he was not able to see anything at that time, he was not able to say 1 way or the other, he was withdrawn combative not able to do anything at that time, so EMS was called and the patient was brought into the emergency department at [facility] patient's was seen and evaluated in the ER, had a CT scan of brain that showed evidence of an old CVA in the left inferior temporal occipital lobe, patient appears to be aphasic and not responding to any stimuli, he is withdrawn, he has significant right upper and right lower extremity weakness, I had a long conversation with the emergency room physician about transferring the patient back to [facility] for evaluation since he was just left the hospital less than 7 days ago, but the family insisted in keeping the patient up in our hospital, patient was found to have a troponin of 3.7, he was ruled in for non-ST elevation WI, he was seen in consultation by cardiology as well as by neurology, I have ordered MRI of the brain with and without toña, ultrasound the carotid as well as echocardiogram at this time, patient is not able to say 1 where the other what he wants to do at this point in time, his and his son were at the bedside, I had a long conversation with the patient family and they were in agreement for the patient to be a no code at this point in time, his stated that she had a conversation with the nurse at [facility] regarding palliative care and she was supposed to have a meeting with her next Saturday I believe the patient is ready for palliative care at this point in time, we will continue with current treatment plan for now, will see our consultants opinion about his current situation, but definitely patient is not a candidate for any further treatment at this point in time, continue Escalante catheter for now, continue to follow-up with the patient very closely, I think the patient and the family are leaning toward [facility] with palliative care at this point in time. 03/26: Patient is laying down in bed he is is quite drowsy, he opens his eyes in response to verbal stimuli, he does not follow any command at this time, he is ignoring his right side, he has right-sided neglect he is not following any command at this point in time, his and his son were at the bedside, I spoke with both of them about the importance of signing him to a palliative care at this point in time, I do not believe that the patient will do well down the line and he is not a candidate for any further intervention at this point in time, I will get speech therapy, evaluated the patient to see if the patient's name is able to take his medication I will try to shoot for the patient to go to [facility] for palliative care hopefully in the next 24 hours. 03/27: Patient is laying down in bed in no apparent distress, he does not appear in any acute pain at this time, he is not following any commands at this time, he would be seen by speech therapy for evaluation of his swallowing, hopefully will be able to start the patient back on his medication, patient's will meet with the hospice nurse today, and the plan to try to get the patient into the hospice home if he has coverage for that, the prognosis at this point is dismal, patient may go for an MRI of the brain with and without toña for further evaluation he just had 1 on March 10, 2024 at [facility]. 03/28--patient was seen and examined today. at bedside. Patient aphasic, right upper and lower extremity flaccid. Hospice consulted, awaiting evaluation. MRI brain yesterday showed large left MCA territory acute/subacute ischemia with additional prominent lesion within the left occipital lobe. Neurology followed the patient, recommended to hold off Eliquis. Vitals reviewed, blood pressure elevated. No new labs. Added Norvasc for blood pressure control, as needed hydralazine. 03/29--- patient was seen and examined today. Continues to have aphasia, family at bedside reported that patient was unable to say 1 word no. Continues to be aphasic, right hemiplegic. Blood pressure still elevated, will increase Norvasc. No new labs today. Urine culture growing Nichole likely colonization. Family anticipate discharge to hospice home, awaiting hospice and case management follow-up. 03/30: Patient is laying down in bed he is awake follows command, he is not in pain he stated, patient continues to have a flaccid right upper and lower extremity, due to the large left middle cerebral artery infarct, patient is not a candidate for any invasive procedures at this time, he is not a candidate for heart catheterization, family including his and his son were at the bedside, and the patient will be moving to hospice house tomorrow morning. REVIEW OF SYSTEMS: Constitutional: positive for documented fever, no chills, no night sweats. positive for weight change. positive for weakness, positive for fatigue or lethargy. positive for daytime sleepiness. EENT: No headache. No blurred vision or double vision, no loss of vision. No loss of Hearing, no ringing in the ears, no dizziness. No nasal drainage or congestion. No epistaxis. No sore throat. Lungs: No shortness of breath, no cough, no sputum production. No wheezing. Reports dyspnea with activity. Cardiovascular: No chest pain, no lower extremity edema. No palpitations. No paroxysmal nocturnal dyspnea. No orthopnea. No lightheadedness or dizziness. No syncopal episodes. Abdominal: Reports no abdominal pain. No nausea, vomiting. No diarrhea. positive for constipation. No bloody or tarry stools reports loss of appetite. Genitourinary: No dysuria, increased frequency, urgency. No urinary retention. Musculoskeletal: No myalgias. right upper and lower extremities weakness, positive for gait dysfunction, no frequent falls. positive for back pain. No neck pain. Integumentary: No wounds, no lesions. No rash or pruritus. No unusual bruising. No change in hair or nails. Neurologic: positive for aphasia. positive for facial droop. positive for change in mentation. No head injury. No headache. positive for paralysis right upper and lower extremity Psychiatric: Positive for depression and anxiety. No mood swings. Endocrine: No abnormal blood sugars. positive for weight change. PHYSICAL EXAMINATION: General: 74-year-old male laying down in bed appears to be in no distress does not follow any commands. HEENT: Head is atraumatic, normocephalic, pupils were equal round reactive to light and recommendation, extraocular muscle movement were intact, sclera nonicteric, conjunctivae were pale, mucous membranes of the mouth are somewhat dry. Neck: Supple, no JVP, normal carotid upstroke bilaterally, no lymphadenopathy. Chest: Decreased breath sounds at the bases, few rhonchi, no expiratory wheezes, no chest wall tenderness, no intercostal retractions. Heart: First heart sound is normal, second heart sounds normal Abdomen: Soft, nontender, nondistended, positive bowel sounds. Extremities: There is no edema no calf tenderness DP +2 bilaterally. Neurologic examination: Patient is awake alert and oriented x 1, patient appears to have a right-sided neck lack, he does appear to have a right upper extremity right lower extremity weakness, he is gazing to the left. He is aphasic not following any command. ASSESSMENT AND PLAN: 1. Non-ST elevation WI in a patient with a history of stage IV pancreatic cancer. At this point in time, I had a long conversation with the patient's and his son at the bedside, I believe the patient will benefit from palliative care at this point in time, he is not a candidate for any invasive procedure at this point in time, he is not a candidate for short for left heart catheterization at this point, I have obtained an echocardiogram for evaluation for LV function, continue to monitor the patient very closely at this point in time patient is not able to take any medication at this time, speech therapy evaluation to see if the patient is able to take anything at this time if that is not the case patient need to be started on palliative/comfort care and hopefully move him into [facility] if that is okay social science instructor consultation will be obtained. Continue patient on atorvastatin 5 mg once every day, continue aspirin 325 g once every day. 2. Recent subacute infarct in the left inferior occipital/temporal lobe injury likely related to recent stroke. I obtained ultrasound the carotid did not show evidence of acute abnormality less than 50% stenosis, echocardiogram did show evidence of ejection fraction 55%, inferior basal hypokinesia as well, MRI of the brain with and without toña showed evidence of a large area of the distribution of the left middle cerebral artery infarct, along with his prior CVA, patient not a candidate for any reperfusion at this point, he is not a candidate for any vascular intervention, patient will be signing on for hospice house tomorrow morning. 3. History of DVT of the left lower extremity. Patient has been on Eliquis for 9-month, will discontinue that for now. 4. History of stage IV pancreatic cancer under the care of hematology oncology at [facility]. In [facility]. Family at this time decided not to go for any further treatment we will continue to monitor the patient very closely, patient meets the criteria for palliative care hopefully will try to transition the patient into [facility] if there is no further help is available at this time, she was given the option of talking to the palliative care nurse that she already talked to her and she wants him to be home with palliative care at this time. 5. Hypertension and hypertensive cardiovascular disease. Continue patient on metoprolol 50 mg orally twice every day, lisinopril 2.5 mg once every day monitor the patient blood pressure very closely. 6. Mixed hyperlipidemia. Continue patient on atorvastatin 20 mg orally once every day, monitor lipid panel, keep LDL 55-70. 7. Diabetes mellitus type 2. Continue sliding scale insulin for now, continue Farxiga 10 mg orally once every day. 8. Hypothyroidism. Continue Synthroid 112 mcg orally once every day monitor TSH and free T4. 9. Anxiety disorder. Continue Zoloft 50 mg once every day, continue trazodone 50 mg orally once every day as well. 10. DVT prophylaxis. Patient was started on heparin 5000 subcutaneously every 8 hours. 11. GI prophylaxis. Continue Protonix 40 mg orally once every day. 12. Very poor prognosis. 13. Patient is DNR. 14. Patient will be released to the hospice home tomorrow morning. Objective - Vital Signs Vital signs: Vital Signs Temp 97.5 F L 03/30/24 07:11 Pulse 63 03/30/24 07:11 Resp 16 03/30/24 07:11 BP 164/83 03/30/24 07:11 Pulse Ox 97 03/30/24 07:11 FiO2 Intake & Output 03/29/24 03/30/24 03/30/24 18:59 06:59 18:59 Weight 106 kg Other: Voiding Method Incontinent Incontinent Diaper Incontinent # Voids 1 2 - Labs CBC & Chem 7: 03/27/24 04:11 03/27/24 04:11 Labs: Abnormal Lab Results - Last 24 Hours (Table) 03/29/24 03/29/24 03/30/24 Range/Units 16:55 20:49 06:47 POC Glucose (mg/dL) 132 H 119 H 159 H (70-110) mg/dL 03/30/24 Range/Units 11:40 POC Glucose (mg/dL) 134 H (70-110) mg/dL
[2024-03-31 07:32] VITALS: BP 152/79; PULSE 75; RESP 18; TEMP 97.8
--- NOTE | 2024-03-31 10:27 | P.DS ---
Providers Date of admission: 03/25/24 10:26 Expected date of discharge: 03/31/24 Attending physician: Destiny Lindquist Consults: 03/25/24 10:26 Consult Physician Routine Consulting Provider: Ellis Pompa Consult Reason/Comments: ams Do you want consulting provider notified?: Yes Consult Physician Routine Consulting Provider: Aysha Dudley Consult Reason/Comments: ams Do you want consulting provider notified?: Yes [facility] Course: HISTORY OF PRESENT ILLNESS: This is a 74-year-old male with a previous medical history significant for hypertension and hypertensive cardiovascular disease, mixed hyperlipidemia, diabetes mellitus type 2, history of hypothyroidism, anxiety disorder, history of obesity, patient was diagnosed with a stage IV pancreatic cancer back in April 2023 at that time he was evaluated at [facility] and he has been following with hematology oncology down there, he did receive initially Abraxane as well as Gemzar subsequently was placed on FOLFIRI as well as venetie ira chemotherapy, as a palliative treatment without intent for cure, patient has been having significant side effect of the medication and the treatment, has been having diarrhea on and off, he has been losing a lot of weight, patient was recently hospitalized at [facility] in [place] for what appears to be an acute sepsis and he was found to have an acute CVA at that time with the right upper extremity and right lower extremity weakness, at that time he was seen in consultation by neurology as well as by cardiology it was thought that the patient could not have any further intervention due to his cancer situation, patient also was treated for what appears to be a sepsis at that time a his Mediport was removed, and he was started on IV antibiotic at that time, subsequently was switched to oral cephalexin as well as vancomycin as a prophylactic treatment for C. difficile colitis, patient just left the [facility] not too long ago yesterday patient became quite confused and combative, he was not able to see anything at that time, he was not able to say 1 way or the other, he was withdrawn combative not able to do anything at that time, so EMS was called and the patient was brought into the emergency department at [facility] patient's was seen and evaluated in the ER, had a CT scan of brain that showed evidence of an old CVA in the left inferior temporal occipital lobe, patient appears to be aphasic and not responding to any stimuli, he is withdrawn, he has significant right upper and right lower extremity weakness, I had a long conversation with the emergency room physician about transferring the patient back to [facility] for evaluation since he was just left the hospital less than 7 days ago, but the family insisted in keeping the patient up in our hospital, patient was found to have a troponin of 3.7, he was ruled in for non-ST elevation TN, he was seen in consultation by cardiology as well as by neurology, I have ordered MRI of the brain with and without toña, ultrasound the carotid as well as echocardiogram at this time, patient is not able to say 1 where the other what he wants to do at this point in time, his and his son were at the bedside, I had a long conversation with the patient family and they were in agreement for the patient to be a no code at this point in time, his stated that she had a conversation with the nurse at [facility] regarding palliative care and she was supposed to have a meeting with her next Saturday I believe the patient is ready for palliative care at this point in time, we will continue with current treatment plan for now, will see our consultants opinion about his current situation, but definitely patient is not a candidate for any further treatment at this point in time, continue Escalante catheter for now, continue to follow-up with the patient very closely, I think the patient and the family are leaning toward [facility] with palliative care at this point in time. 03/26: Patient is laying down in bed he is is quite drowsy, he opens his eyes in response to verbal stimuli, he does not follow any command at this time, he is ignoring his right side, he has right-sided neglect he is not following any command at this point in time, his and his son were at the bedside, I spoke with both of them about the importance of signing him to a palliative care at this point in time, I do not believe that the patient will do well down the line and he is not a candidate for any further intervention at this point in time, I will get speech therapy, evaluated the patient to see if the patient's name is able to take his medication I will try to shoot for the patient to go to [facility] for palliative care hopefully in the next 24 hours. 03/27: Patient is laying down in bed in no apparent distress, he does not appear in any acute pain at this time, he is not following any commands at this time, he would be seen by speech therapy for evaluation of his swallowing, hopefully will be able to start the patient back on his medication, patient's will meet with the hospice nurse today, and the plan to try to get the patient into the hospice home if he has coverage for that, the prognosis at this point is dismal, patient may go for an MRI of the brain with and without toña for further evaluation he just had 1 on March 10, 2024 at [facility]. 03/28--patient was seen and examined today. at bedside. Patient aphasic, right upper and lower extremity flaccid. Hospice consulted, awaiting evaluation. MRI brain yesterday showed large left MCA territory acute/subacute ischemia with additional prominent lesion within the left occipital lobe. Neurology followed the patient, recommended to hold off Eliquis. Vitals reviewed, blood pressure elevated. No new labs. Added Norvasc for blood pressure control, as needed hydralazine. 03/29--- patient was seen and examined today. Continues to have aphasia, family at bedside reported that patient was unable to say 1 word no. Continues to be aphasic, right hemiplegic. Blood pressure still elevated, will increase Norvasc. No new labs today. Urine culture growing Nichole likely colonization. Family anticipate discharge to hospice home, awaiting hospice and case management follow-up. 03/30: Patient is laying down in bed he is awake follows command, he is not in pain he stated, patient continues to have a flaccid right upper and lower extremity, due to the large left middle cerebral artery infarct, patient is not a candidate for any invasive procedures at this time, he is not a candidate for heart catheterization, family including his and his son were at the bedside, and the patient will be moving to hospice house tomorrow morning. 03/31: Patient is laying down in bed he is drowsy at this point in time, he is not able to swallow any medication at this point we will discontinue all his medication, I spoke with the case management manager about sending the patient to hospice home, his was at the bedside his son was at the bedside as well, patient will be transferred to the hospice house today he is to be on Ativan as well as morphine sulfate for comfort no additional medication will be obtained. Discharge diagnoses: 1. Non-ST elevation TN in a patient with a history of stage IV pancreatic cancer. 2. Recent subacute infarct in the left inferior occipital/temporal lobe injury likely related to recent stroke. I obtained ultrasound the carotid did not show evidence of acute abnormality less than 50% stenosis, echocardiogram did show evidence of ejection fraction 55%, inferior basal hypokinesia as well, MRI of the brain with and without toña showed evidence of a large area of the distribution of the left middle cerebral artery infarct 3. History of DVT of the left lower extremity. 4. History of stage IV pancreatic cancer under the care of hematology oncology at [facility]. 5. Hypertension and hypertensive cardiovascular disease. 6. Mixed hyperlipidemia. 7. Diabetes mellitus type 2. 8. Hypothyroidism. 9. Anxiety disorder. Patient Condition at Discharge: Serious Plan - Discharge Summary New Discharge Prescriptions: No Action Diphenoxylate HCl/Atropine [Lomotil 2.5-0.025 mg Tablet] 1 tab PO Q8H PRN PRN Reason: Diarrhea oxyCODONE-APAP 5-325MG [Percocet 5-325 mg] 1 tab PO Q8H PRN PRN Reason: Pain Ondansetron Odt [Zofran Odt] 4 mg PO Q8HR PRN PRN Reason: Nausea Famotidine [Pepcid] 40 mg PO HS Potassium Gluconate 550mg 550 mg PO DAILY lisinopriL [Zestril] 2.5 mg PO DAILY Loratadine [Claritin] 10 mg PO DAILY Cholecalciferol [Vitamin D3 (25 Mcg = 1000 Iu)] 100 mcg PO DAILY Cephalexin [Keflex] 250 mg PO TID Insulin Glargine,Hum.rec.anlog [Lantus Solostar Pen] 15 units SQ DAILY Furosemide [Lasix] 40 mg PO DAILY Empagliflozin [Jardiance] 25 mg PO DAILY Cholestyramine/Aspartame [Cholestyramine Light Powder] 4 gm PO BID PRN PRN Reason: Diarrhea Loperamide [Imodium] 2 mg PO BID PRN PRN Reason: Diarrhea Colchicine [Colcrys] 0.6 mg PO DAILY PRN PRN Reason: gout Metoprolol Tartrate [Lopressor] 50 mg PO BID Atorvastatin [Lipitor] 20 mg PO HS traZODone HCL [Desyrel] 50 mg PO HS Lipase/Protease/Amylase [Zenpep Dr 25,000 Unit Capsule] 1 cap PO TID-W/MEALS Alpha Lipoic Acid 600 mg PO HS Levothyroxine Sodium [Synthroid] 112 mcg PO DAILY Vancomycin Oral Solution [Vancomycin HCl Oral Soln] 125 mg PO Q12H Sertraline [Zoloft] 50 mg PO DAILY allopurinoL [Zyloprim] 100 mg PO DAILY Apixaban [Eliquis] 5 mg PO BID Discharge Medication List Alpha Lipoic Acid 600 mg PO HS 03/25/24 [History] Apixaban [Eliquis] 5 mg PO BID 03/25/24 [History] Atorvastatin [Lipitor] 20 mg PO HS 03/25/24 [History] Cephalexin [Keflex] 250 mg PO TID 03/25/24 [History] Cholecalciferol [Vitamin D3 (25 Mcg = 1000 Iu)] 100 mcg PO DAILY 03/25/24 [History] Cholestyramine/Aspartame [Cholestyramine Light Powder] 4 gm PO BID PRN 03/25/24 [History] Colchicine [Colcrys] 0.6 mg PO DAILY PRN 03/25/24 [History] Diphenoxylate HCl/Atropine [Lomotil 2.5-0.025 mg Tablet] 1 tab PO Q8H PRN 03/25/24 [History] Empagliflozin [Jardiance] 25 mg PO DAILY 03/25/24 [History] Famotidine [Pepcid] 40 mg PO HS 03/25/24 [History] Furosemide [Lasix] 40 mg PO DAILY 03/25/24 [History] Insulin Glargine,Hum.rec.anlog [Lantus Solostar Pen] 15 units SQ DAILY 03/25/24 [History] Levothyroxine Sodium [Synthroid] 112 mcg PO DAILY 03/25/24 [History] Lipase/Protease/Amylase [Zenpep Dr 25,000 Unit Capsule] 1 cap PO TID-W/MEALS 03/25/24 [History] Loperamide [Imodium] 2 mg PO BID PRN 03/25/24 [History] Loratadine [Claritin] 10 mg PO DAILY 03/25/24 [History] Metoprolol Tartrate [Lopressor] 50 mg PO BID 03/25/24 [History] Ondansetron Odt [Zofran Odt] 4 mg PO Q8HR PRN 03/25/24 [History] Potassium Gluconate 550mg 550 mg PO DAILY 03/25/24 [History] Sertraline [Zoloft] 50 mg PO DAILY 03/25/24 [History] Vancomycin Oral Solution [Vancomycin HCl Oral Soln] 125 mg PO Q12H 03/25/24 [History] allopurinoL [Zyloprim] 100 mg PO DAILY 03/25/24 [History] lisinopriL [Zestril] 2.5 mg PO DAILY 03/25/24 [History] oxyCODONE-APAP 5-325MG [Percocet 5-325 mg] 1 tab PO Q8H PRN 03/25/24 [History] traZODone HCL [Desyrel] 50 mg PO HS 03/25/24 [History] Follow up Appointment(s)/Referral(s): Destiny Lindquist MD [Primary Care Provider] - 1-2 days
[2024-03-31] MEDS ORDERED: ONDANSETRON 4 MG TAB PO PRN (10:29)
[2024-03-31] MEDS ORDERED: LORazepam 0.5 MG TAB PO PRN (10:31)
[2024-03-31] MEDS: MORPHINE CONC SOLN 10mg/0.5mL ORAL SYRG SL PRN (12:59)
== END 2024-03-31 13:13 | disposition hospice, inpatient (51) | DRG 280 ==
LOC: EC 07:36 → 3SCARD 10:26 → 4SSUR 03-26 15:40
PROVIDERS: ADMIT Internal Medicine; ATTEND Internal Medicine
DX: I21.4 Non-ST elevation (NSTEMI) myocardial infarction (principal); G93.41 Metabolic encephalopathy; R18.8 Other ascites; G81.91 Hemiplegia, unspecified affecting right dominant side; R47.01 Aphasia; C25.9 Malignant neoplasm of pancreas, unspecified; C79.9 Secondary malignant neoplasm of unspecified site; D68.69 Other thrombophilia; Z66 Do not resuscitate; Z51.5 Encounter for palliative care; E03.9 Hypothyroidism, unspecified; E11.9 Type 2 diabetes mellitus without complications; E66.9 Obesity, unspecified; I11.9 Hypertensive heart disease without heart failure; I69.398 Other sequelae of cerebral infarction; Z79.4 Long term (current) use of insulin; E78.2 Mixed hyperlipidemia; F41.9 Anxiety disorder, unspecified; J30.9 Allergic rhinitis, unspecified; G47.33 Obstructive sleep apnea (adult) (pediatric); I25.10 Atherosclerotic heart disease of native coronary artery without angina pectoris; R29.810 Facial weakness; H53.9 Unspecified visual disturbance; Z96.89 Presence of other specified functional implants; Z96.652 Presence of left artificial knee joint; Z79.01 Long term (current) use of anticoagulants; Z79.899 Other long term (current) drug therapy; Z79.84 Long term (current) use of oral hypoglycemic drugs; Z79.890 Hormone replacement therapy; Z92.21 Personal history of antineoplastic chemotherapy; Z86.718 Personal history of other venous thrombosis and embolism
CPT/HCPCS: 36415; 70450; 70553; 71045; 76705; 80053; 80061; 80306; 80320; 81001; 82140; 82550; 83036; 83690; 83735; 84100; 84484; 85025; 85610; 85730; 87086; 93005; 93306; 93880; 96361; 96372; 96374; 96375; 99291